=== PATIENT | female | born 1930 | race Caucasian/White ===

== ENCOUNTER 2016-06-17 14:15 | Inpatient (IN) | payer MEDICARE, OTHER ==
[~2016-06-17] VITALS: Ht 152.4 cm; Wt 54.4 kg
[~2016-06-17 14:15] MED LIST: NORVASC2.5 MG ORAL; PANTOPRAZOLE SO40 MG ORAL; PRAVASTATIN SOD20 M1 ORAL; PROPRANOLOL HCL10 MG ORAL; SIMVASTATIN5 MG ORAL
[2016-06-17 15:36] VITALS: BP 147/57
[2016-06-17 16:06] LABS: TROPONIN I < 0.30 ng/mL (<=0.30)
[2016-06-17 16:09] LABS: ALANINE AMINOTRANSFERASE 8 U/L (3-33); ALBUMIN/GLOBULIN RATIO 1.7 (1.0-2.7); ANION GAP 13 (5-15); ASPARTATE AMINO TRANSFERASE 11 U/L (5-40); CALCIUM 8.8 mg/dL (8.6-10.2); CARBON DIOXIDE 26 mEQ/L (20-30); CHLORIDE 96 mEQ/L (98-107); CREATININE 0.6 mg/dL (0.5-0.9); HEMOLYSIS 1; POTASSIUM 3.9 mEQ/L (3.4-4.9); SODIUM 135 mEQ/L (135-145); TOTAL PROTEIN 5.4 g/dL (6.6-8.7)
--- NOTE | 2016-06-17 16:11 | Diagnostic Imaging Report ---
Indications: Altered mental status Technique: Spiral acquisitions obtained through the brain. Angled axial and coronal 5 x 5 mm slices were reconstructed. Total dose length product 1351 mGycm. CTDI vol(s) 70 mGy Comparison: None Findings: There is age-related enlargement of ventricles and extra-axial CSF spaces. There is periventricular the white matter chronic ischemic change. There is old encephalomalacia in the left occipital lobe, consistent with prior infarct. No acute hemorrhage or edema. No mass effect or midline shift. There is a patent cavum septum loosened at normal anatomic variant. Visualized orbits and sinuses are unremarkable. The calvarium is intact Impression: Chronic and age-related changes as described. Old left occipital infarct. Negative for acute intracranial bleed or mass effect. The CT scanner at [facility] is accredited by the [employer] and the scans are performed using protocols designed to limit radiation exposure to as low as reasonably achievable to attain images of sufficient resolution adequate for diagnostic evaluation.
[2016-06-17 16:19] LABS: CKMB 1.6 ng/mL (< 3.8)
--- NOTE | 2016-06-17 16:48 | Diagnostic Imaging Report ---
Indication: Chest pain Technique: One view of the chest Comparison: none Findings: Lungs demonstrate mild interstitial prominence and central bronchial wall thickening, appearance suggestive of senescent changes. No definite focal infiltrates. Pleural spaces are clear. No definite congestion. Heart size is borderline enlarged. There is a left arm PICC. Impression: No definite acute process. Borderline cardiomegaly Other findings as noted
[2016-06-17 16:52] LABS: APPEARANCE,URINE CLEAR; KETONES,URINE NEGATIVE (NEGATIVE); LEUKOCYTE ESTERASE ,URINE 2+ (NEGATIVE); NITRITE,URINE NEGATIVE (NEGATIVE); PH,URINE 6.5 (4.5-8.0); PROTEIN,URINE NEGATIVE (NEGATIVE); UROBILINOGEN,URINE NORMAL MG/DL (0.0-1.0)
--- NOTE | 2016-06-17 17:03 | Emergency Room Report ---
History of Present Illness General Chief Complaint: Generalized Weakness Source: Family Member Present Illness HPI 86 YOF sent from PMD's office for "Weakness" and dizziness and nausea. On chemo for known lymphoma. Denies headache, difficulty walking, chest pain, SOB , abd pain, fever/chills, urinary complaints. Allergies: Coded Allergies: No Known Allergies (Unverified , 02/22/16) Patient History Past Medical History: DM, HTN Past Surgical History: none Pertinent Family History: none Social History: Denies: alcohol use, drug use, smoking Now: No Immunizations: UTD Reviewed Nursing Documentation: PMH: Agreed, PSxH: Agreed Nursing Documentation-PMH Hx Cardiac Problems: Yes - Mitral Valve Hx Hypertension: Yes Hx Diabetes: Yes Hx Cancer: Yes - Lymphoma Hx Gastrointestinal Problems: Yes Hx Neurological Problems: No Hx Cerebrovascular Accident: Yes Review of Systems All Other Systems: negative except mentioned in HPI Physical Exam Vital Signs Date Time Temp Pulse Resp B/P Pulse Ox O2 Delivery O2 Flow Rate FiO2 06/17/16 14:08 98.6 79 18 156/74 99 Room Air Sp02 EP Interpretation: reviewed, normal General Appearance: normal inspection, well appearing, no apparent distress, alert, GCS 15, non-toxic, cachetic, Chronically Ill Head: normocephalic, atraumatic Eyes: bilateral eye EOMI, bilateral eye PERRL ENT: normal ENT inspection, hearing grossly normal, normal voice Neck: normal inspection, full range of motion, supple, no bony tend Respiratory: normal inspection, lungs clear, normal breath sounds, no respiratory distress, no retraction, no wheezing Cardiovascular #1: regular rate, rhythm, no edema Gastrointestinal: normal inspection, normal bowel sounds, non tender, soft, no guarding, no hernia Genitourinary: no CVA tenderness Musculoskeletal: normal inspection, back normal, normal range of motion, Nereyda' s Sign negative Neurologic: alert, oriented x3, responsive, car hopper III-XII nml as tested, motor strength/tone normal Psychiatric: normal inspection, judgement/insight normal, mood/affect normal Skin: normal inspection, normal color, no rash Lymphatic: normal inspection Medical Decision Making Medicare Attestation I Ned Tanner MD hereby attest that the medical record entry for date of service, 02/18/16 accurately reflects signatures/notations that I made in my capacity as MD when I treated/diagnosed the above listed Medicare beneficiary. I attest that this information is true, accurate and complete to the best of my knowledge. I understand that any falsification, omission, or concealment of material fact may subject me to administrative, civil, or criminal liability. This patient warrants hospital admission for extreme of age and has a condition that cannot be treated as outpatient. Diagnostic Impression: Primary Impression: Episode of generalized weakness Additional Impression: Anemia Qualified Codes: D64.9 - Anemia, unspecified ER Course Labs: Elevated BNP 1100. Hb 8. Troponin 0. CXR: No acute process Dizziness, weakness - Afebrile. No obvious source of infection in UA or CXR - ECG is NSR, no ischemia. Some PVCs. Troponin 0. - CT head shows older CVA. No acute ICH, mass - Hb 8. Will transfuse 2U PRBC Endorsed to Dr Sánchez as admitting physician for Dr Germain at 547pm for med/surg bed. EKG Diagnostic Results Rate: normal, other - PVCs Rhythm: NSR ST Segments: no acute changes Rhythm Strip Diag. Results EP Interpretation: yes Rate: 75 Rhythm: NSR, no PVC's Chest X-Ray Diagnostic Results EP Interpretation: Yes Findings: no consolidation, no effusion, no pneumothorax, other - Cardiomegaly Number of Views: 1 Last Vital Signs Date Time Temp Pulse Resp B/P Pulse Ox O2 Delivery O2 Flow Rate FiO2 06/17/16 15:36 76 20 147/57 99 Room Air 06/17/16 14:08 98.6 Status: improved Disposition: ADMITTED INPATIENT Condition: Serious Referrals: [facility] (PCP) NED TANNER M.D. Jun 17, 2016 17:03
[2016-06-17 17:14] LABS: BACTERIA,URINE FEW /HPF; RBC,URINE 0-2 /HPF (0 - 2); SQUAMOUS EPITHELIAL CELL,UR FEW /LPF (NONE/OCC)
[2016-06-17 17:37] LABS: MEAN CORPUSCULAR HGB CONC 32.1 G/DL (32.0-36.0); MEAN CORPUSCULAR VOLUME 100 FL (80-99); MEAN PLATELET VOLUME 9.3 FL (6.5-10.1); PLATELET COUNT 56 K/UL (150-450); RED BLOOD COUNT 2.51 M/UL (4.20-5.40); RED CELL DISTRIBUTION WIDTH 15.2 % (11.6-14.8); WHITE BLOOD COUNT 10.5 K/UL (4.8-10.8)
[2016-06-17 17:38] VITALS: BP 150/61
[2016-06-17] MEDS ORDERED: UNOBMED (18:04)
[2016-06-17 18:40] LABS: BAND NEUTROPHILS % (MANUAL) 5 % (0-8)
[2016-06-17 18:41] LABS: ANISOCYTOSIS 1+; BASOPHILS % (MANUAL) 0 % (0-2); EOSINOPHILS % (MANUAL) 0 % (0-3); HYPOCHROMASIA 1+; LYMPHOCYTES % (MANUAL) 6 % (20-45); NEUTROPHILS % (MANUAL) 87 % (45-75); PLATELET ESTIMATE DECREASED; PLATELET MORPHOLOGY NORMAL; TOTAL CELLS COUNTED 100
[2016-06-17 19:00] VITALS: BP 139/68
[2016-06-17] MEDS ORDERED: Miralax 17gm pkt ORAL PRN (20:00)
[2016-06-17] MEDS ORDERED: Zolpidem 5mg tab ORAL PRN (20:00)
[2016-06-17] MEDS ORDERED: Morphine Sulfate 2mg/ml Inj IVP PRN (20:00)
[2016-06-17] MEDS ORDERED: Mylanta II UD 30ml ORAL PRN (20:00)
[2016-06-17] MEDS ORDERED: LORazepam Inj 2mg/ml 1ml IV PRN (20:00)
[2016-06-17] MEDS ORDERED: Norco 5mg/325mg tab ORAL PRN (20:15)
[2016-06-17] MEDS: NovoLOG Insulin Flexpen SUBQ SCH (20:42)
[2016-06-17] MEDS ORDERED: Propranolol 10mg tab ORAL SCH (22:00)
[2016-06-18 01:00] VITALS: BP 138/68
[2016-06-18 04:07] VITALS: BP 144/69
[2016-06-18] MEDS: NovoLOG Insulin Flexpen SUBQ SCH ×4 (06:31→20:56)
[2016-06-18 07:07] LABS: MEAN CORPUSCULAR HEMOGLOBIN 31.8 PG (27.0-31.0); MEAN CORPUSCULAR HGB CONC 32.3 G/DL (32.0-36.0); MEAN CORPUSCULAR VOLUME 98 FL (80-99); MEAN PLATELET VOLUME 9.4 FL (6.5-10.1); PLATELET COUNT 49 K/UL (150-450); RED BLOOD COUNT 2.56 M/UL (4.20-5.40); RED CELL DISTRIBUTION WIDTH 14.4 % (11.6-14.8); WHITE BLOOD COUNT 4.2 K/UL (4.8-10.8)
[2016-06-18 07:20] LABS: MAGNESIUM 1.9 mg/dL (1.7-2.5)
[2016-06-18 07:22] LABS: LACTATE DEHYDROGENASE 211 U/L (135-230)
[2016-06-18 07:23] LABS: HEMOLYSIS 3; IRON 141 ug/dL (37-145); TOTAL IRON BINDING CAPACITY 268 ug/dL (250-400)
[2016-06-18 07:25] LABS: TROPONIN I < 0.30 ng/mL (<=0.30)
[2016-06-18 07:28] LABS: INR 1.1 (0.9-1.1); PROTHROMBIN TIME 10.9 SEC (9.30-11.50)
[2016-06-18 07:30] LABS: ALANINE AMINOTRANSFERASE 7 U/L (3-33); ALBUMIN/GLOBULIN RATIO 1.7 (1.0-2.7); ANION GAP 15 (5-15); ASPARTATE AMINO TRANSFERASE 11 U/L (5-40); CALCIUM 8.6 mg/dL (8.6-10.2); CARBON DIOXIDE 26 mEQ/L (20-30); CHLORIDE 97 mEQ/L (98-107); CREATININE 0.6 mg/dL (0.5-0.9); HEMOLYSIS 5; POTASSIUM 3.9 mEQ/L (3.4-4.9); SODIUM 138 mEQ/L (135-145); TOTAL PROTEIN 5.4 g/dL (6.6-8.7)
[2016-06-18 08:00] VITALS: BP 131/65
[2016-06-18 09:14] LABS: ANISOCYTOSIS 1+; BAND NEUTROPHILS % (MANUAL) 6 % (0-8); BASOPHILS % (MANUAL) 0 % (0-2); EOSINOPHILS % (MANUAL) 2 % (0-3); HYPOCHROMASIA 1+; LYMPHOCYTES % (MANUAL) 9 % (20-45); NEUTROPHILS % (MANUAL) 81 % (45-75); PLATELET ESTIMATE DECREASED; PLATELET MORPHOLOGY NORMAL; TOTAL CELLS COUNTED 100
[2016-06-18 09:54] LABS: ERYTHROCYTE SEDIMENTATION RATE 66 MM/HR (0-42)
--- NOTE | 2016-06-18 10:22 | Diagnostic Imaging Report ---
APPROVED REPORT CPT Code: 71554 Vascular Symptoms Syncope CAROTID (BILATERAL) - Imaging reveals no significant plaque within the right and left extracranial carotid arteries. The Doppler spectral flow analysis is within normal limits throughout the extracranial carotid arteries bilaterally. VERTEBRAL- The vertebral arteries are within normal limits.
--- NOTE | 2016-06-18 10:22 | Diagnostic Imaging Report ---
APPROVED REPORT CPT Code: 64398 Present Symptoms Comments: R/O DVT BILATERAL: Imaging reveals a patent deep venous system bilaterally. There is no evidence of thrombus within the femoral, popliteal or tibial segments. The greater saphenous veins are also within normal limits. Doppler indicates normal spontaneous flow within these segments.
[2016-06-18] MEDS: Atenolol 25mg tab ORAL SCH ×2 (10:34→20:54)
[2016-06-18] MEDS: Sucralfate 1gm tab ORAL SCH ×2 (10:34→16:44)
[2016-06-18 10:39] LABS: PATH BLOOD SMEAR/OMC SENT TO PATHOLOGIST; RETICULOCYTE COUNT 0.4 % (0.0-2.0)
--- NOTE | 2016-06-18 14:58 | Consultation ---
History of Present Illness General Date patient seen: Jun 18, 2016 Chief Complaint: Generalized Weakness Referring physician: dr Harman Reason for Consultation: in-patient management Present Illness HPI 86 year old female with PMHx of Lymphoma, on chemo, DM, HTN, presented to ER with CC of increased weakness and fatigue. Pt was found to have profound anemia and admitted for further evaluation. Allergies: Coded Allergies: No Known Allergies (Unverified , 02/22/16) Medication History Scheduled Amlodipine Besylate (Norvasc), 2.5 MG ORAL DAILY, (Reported) Pantoprazole* (Pantoprazole*), 40 MG ORAL DAILY, (Reported) Pravastatin Sod* (Pravastatin Sod*), 20 MG ORAL BEDTIME, (Reported) Propranolol Hcl* (Inderal*), 10 MG ORAL DA, (Reported) Simvastatin (Zocor), 5 MG ORAL BEDTIME, (Reported) Miscellaneous Medications Unable to Obtain Medications (Unable To Obtain Meds), (Reported) Patient History Healthcare decision maker Resuscitation status Full Code Advanced Directive on File Past Medical/Surgical History Past Medical/Surgical History: (1) HTN (hypertension) (2) Diabetes (3) Lymphoma Review of Systems Constitutional: Reports: malaise, weakness Physical Exam Lines, tubes and drains: peripheral HEENT: normocephalic, atraumatic Neck: non-tender, normal alignment Respiratory/Chest: chest wall non-tender, lungs clear Cardiovascular/Chest: normal peripheral pulses, regular rhythm Abdomen: normal bowel sounds, non tender Genitourinary/Rectal: normal genital exam Extremities: normal range of motion Skin Exam: normal pigmentation Neurologic: clinical documentation developer II-XII grossly normal Last 24 Hour Vital Signs Date Time Temp Pulse Resp B/P Pulse Ox O2 Delivery O2 Flow Rate FiO2 06/18/16 13:33 135/67 06/18/16 12:00 81 98 96 06/18/16 10:34 65 135/68 06/18/16 08:00 98.8 87 18 131/65 98 Room Air 06/18/16 04:07 97.1 82 20 144/69 99 Room Air 06/18/16 01:00 79 68 93 06/18/16 01:00 97.7 79 20 138/68 100 Room Air 06/17/16 19:00 98.4 79 20 139/68 98 Room Air 4/4/17 18:53 98.6 78 17 150/61 100 Room Air 06/17/16 17:38 78 17 150/61 100 Room Air 06/17/16 15:36 76 20 147/57 99 Room Air Intake and Output 06/17/16 06/18/16 19:00 07:00 Intake Total 750 ml Balance 750 ml IV Total 750 ml # Voids 1 5 # Bowel Movements 3 Laboratory Tests Test 06/17/16 15:23 06/17/16 16:16 06/17/16 17:03 06/18/16 03:00 Sodium Level 135 mEQ/L (135-145) Potassium Level 3.9 mEQ/L (3.4-4.9) Chloride Level 96 mEQ/L (98-107) L Carbon Dioxide Level 26 mEQ/L (20-30) Anion Gap 13 (5-15) Blood Urea Nitrogen 12 mg/dL (7-23) Creatinine 0.6 mg/dL (0.5-0.9) Estimat Glomerular Filtration Rate mL/min (>60) Glucose Level 118 mg/dL (74-106) H Calcium Level 8.8 mg/dL (8.6-10.2) Total Bilirubin 0.6 mg/dL (0.0-1.2) Aspartate Amino Transf (AST/SGOT) 11 U/L (5-40) Alanine Aminotransferase (ALT/SGPT) 8 U/L (3-33) Alkaline Phosphatase 80 U/L (35-104) Total Creatine Kinase 18 U/L (26-140) L Creatine Kinase MB 1.6 ng/mL (< 3.8) Creatine Kinase MB Relative Index 8.8 Troponin I < 0.30 ng/mL (<=0.30) Pro-B-Type Natriuretic Peptide 1176 pg/mL (0-450) H Total Protein 5.4 g/dL (6.6-8.7) L Albumin 3.4 g/dL (3.5-5.2) L Globulin 2.0 g/dL Albumin/Globulin Ratio 1.7 (1.0-2.7) Urine Color Pale yellow Urine Appearance Clear Urine pH 6.5 (4.5-8.0) Urine Specific [place] 1.010 (1.005-1.035) Urine Protein Negative (NEGATIVE) Urine Glucose (UA) Negative (NEGATIVE) Urine Ketones Negative (NEGATIVE) Urine Occult Blood Negative (NEGATIVE) Urine Nitrite Negative (NEGATIVE) Urine Bilirubin Negative (NEGATIVE) Urine Urobilinogen Normal MG/DL (0.0-1.0) Urine Leukocyte Esterase 2+ (NEGATIVE) H Urine RBC 0-2 /HPF (0 - 2) Urine WBC 2-4 /HPF (0 - 2) Urine Squamous Epithelial Cells Few /LPF (NONE/OCC) Urine Bacteria Few /HPF (NONE) White Blood Count 10.5 K/UL (4.8-10.8) Red Blood Count 2.51 M/UL (4.20-5.40) L Hemoglobin 8.0 G/DL (12.0-16.0) L Hematocrit 25.0 % (37.0-47.0) L Mean Corpuscular Volume 100 FL (80-99) H Mean Corpuscular Hemoglobin 32.0 PG (27.0-31.0) H Mean Corpuscular Hemoglobin Concent 32.1 G/DL (32.0-36.0) Red Cell Distribution Width 15.2 % (11.6-14.8) H Platelet Count 56 K/UL (150-450) L Mean Platelet Volume 9.3 FL (6.5-10.1) Neutrophils (%) (Auto) % (45.0-75.0) Lymphocytes (%) (Auto) % (20.0-45.0) Monocytes (%) (Auto) % (1.0-10.0) Eosinophils (%) (Auto) % (0.0-3.0) Basophils (%) (Auto) % (0.0-2.0) Differential Total Cells Counted 100 Neutrophils % (Manual) 87 % (45-75) H Lymphocytes % (Manual) 6 % (20-45) L Monocytes % (Manual) 2 % (1-10) Eosinophils % (Manual) 0 % (0-3) Basophils % (Manual) 0 % (0-2) Band Neutrophils 5 % (0-8) Platelet Estimate Decreased L Platelet Morphology Normal Hypochromasia 1+ Anisocytosis 1+ Stool Occult Blood Negative (NEGATIVE) Test 06/18/16 06:15 White Blood Count 4.2 K/UL (4.8-10.8) #L Red Blood Count 2.56 M/UL (4.20-5.40) L Hemoglobin 8.1 G/DL (12.0-16.0) L Hematocrit 25.1 % (37.0-47.0) L Mean Corpuscular Volume 98 FL (80-99) Mean Corpuscular Hemoglobin 31.8 PG (27.0-31.0) H Mean Corpuscular Hemoglobin Concent 32.3 G/DL (32.0-36.0) Red Cell Distribution Width 14.4 % (11.6-14.8) Platelet Count 49 K/UL (150-450) L Mean Platelet Volume 9.4 FL (6.5-10.1) Neutrophils (%) (Auto) % (45.0-75.0) Lymphocytes (%) (Auto) % (20.0-45.0) Monocytes (%) (Auto) % (1.0-10.0) Eosinophils (%) (Auto) % (0.0-3.0) Basophils (%) (Auto) % (0.0-2.0) Differential Total Cells Counted 100 Neutrophils % (Manual) 81 % (45-75) H Lymphocytes % (Manual) 9 % (20-45) L Monocytes % (Manual) 2 % (1-10) Eosinophils % (Manual) 2 % (0-3) Basophils % (Manual) 0 % (0-2) Band Neutrophils 6 % (0-8) Platelet Estimate Decreased L Platelet Morphology Normal Hypochromasia 1+ Anisocytosis 1+ Erythrocyte Sedimentation Rate 66 MM/HR (0-42) H Reticulocyte Count 0.4 % (0.0-2.0) Prothrombin Time 10.9 SEC (9.30-11.50) Prothromb Time International Ratio 1.1 (0.9-1.1) Activated Partial Thromboplast Time 28 SEC (23-33) Sodium Level 138 mEQ/L (135-145) Potassium Level 3.9 mEQ/L (3.4-4.9) Chloride Level 97 mEQ/L (98-107) L Carbon Dioxide Level 26 mEQ/L (20-30) Anion Gap 15 (5-15) Blood Urea Nitrogen 9 mg/dL (7-23) Creatinine 0.6 mg/dL (0.5-0.9) Estimat Glomerular Filtration Rate mL/min (>60) Glucose Level 125 mg/dL (74-106) H Calcium Level 8.6 mg/dL (8.6-10.2) Phosphorus Level 4.0 mg/dL (2.5-4.8) Magnesium Level 1.9 mg/dL (1.7-2.5) Iron Level 141 ug/dL (37-145) Total Iron Binding Capacity 268 ug/dL (250-400) Percent Iron Saturation 53 % (15-50) H Unsaturated Iron Binding 127 ug/dL (112-346) Total Bilirubin 0.7 mg/dL (0.0-1.2) Aspartate Amino Transf (AST/SGOT) 11 U/L (5-40) Alanine Aminotransferase (ALT/SGPT) 7 U/L (3-33) Alkaline Phosphatase 77 U/L (35-104) Lactate Dehydrogenase 211 U/L (135-230) Troponin I < 0.30 ng/mL (<=0.30) Total Protein 5.4 g/dL (6.6-8.7) L Albumin 3.4 g/dL (3.5-5.2) L Globulin 2.0 g/dL Albumin/Globulin Ratio 1.7 (1.0-2.7) Carcinoembryonic Antigen 1.6 ng/mL Vitamin B12 Level > 2000 pg/mL (211-946) H Folate Pending Thyroid Stimulating Hormone (TSH) 2.260 uIU/mL (0.300-4.500) Height (Feet): 5 Height (Inches): 0.00 Weight (Pounds): 120 Medications Current Medications Medications (Trade) Dose Ordered Sig/Sharita Route PRN Reason Start Time Stop Time Status Last Admin Dose Admin Acetaminophen (Tylenol) 650 mg Q4H PRN ORAL fever 06/17/16 20:00 07/17/16 19:59 Acetaminophen/ Hydrocodone Bitart ([place] 5/325) 1 tab Q6H PRN ORAL Moderate Pain (Pain Scale 4-6) 06/17/16 20:15 06/24/16 20:14 Al Hydroxide/Mg Hydroxide (Mylanta II) 30 ml Q6H PRN ORAL dyspepsia 06/17/16 20:00 07/17/16 19:59 Atenolol (Tenormin) 25 mg Q12HR ORAL 06/18/16 10:00 07/18/16 09:59 06/18/16 10:34 Dextrose STAT PRN IV Hypoglycemia 06/17/16 20:00 07/17/16 19:59 Donepezil HCl (Aricept) 5 mg QHS ORAL 06/18/16 21:00 07/18/16 20:59 Glipizide (GlipiZIDE XL) 2.5 mg BIAC ORAL 06/18/16 16:30 07/18/16 16:29 Insulin Aspart (NovoLOG) BEFORE MEALS AND HS SUBQ 06/17/16 21:00 07/17/16 20:59 06/18/16 12:24 Irbesartan (Avapro) 75 mg DAILY ORAL 06/18/16 12:00 07/18/16 11:59 06/18/16 13:33 Lorazepam (Ativan 2mg/ml 1ml) 0.5 mg Q4H PRN IV For Anxiety 06/17/16 20:00 06/24/16 19:59 Morphine Sulfate (Morphine Sulfate) 1 mg Q4H PRN IVP For Pain 4-06/17/16 20:00 06/24/16 19:59 Ondansetron HCl (Zofran) 4 mg Q6H PRN IVP Nausea & Vomiting 06/17/16 20:00 07/17/16 19:59 06/18/16 13:32 Pantoprazole (Protonix) 40 mg ACBREAKFAST ORAL 06/18/16 10:00 07/18/16 09:59 06/18/16 10:33 Polyethylene Glycol (Miralax) 17 gm HSPRN PRN ORAL Constipation FIRST LINE AGENT 06/17/16 20:00 07/17/16 19:59 Sodium Chloride (Sodium Chloride 1000ml bag) 1,000 ml @ 75 mls/hr [id number] IV 06/17/16 20:30 07/17/16 20:29 06/18/16 10:33 Sucralfate (Carafate) 1 gm TIAC ORAL 06/18/16 11:30 07/18/16 11:29 06/18/16 10:34 Zolpidem Tartrate (Ambien) 5 mg HSPRN PRN ORAL Insomnia 06/17/16 20:00 07/17/16 19:59 Assessment/Plan Problem List: (1) Symptomatic anemia ICD Codes: D64.9 - Anemia, unspecified SNOMED: 661921934 (2) Episode of generalized weakness ICD Codes: R53.1 - Weakness SNOMED: 36564600 (3) Diabetes ICD Codes: E11.9 - Type 2 diabetes mellitus without complications SNOMED: 12255325 (4) Lymphoma ICD Codes: C85.90 - Non-Hodgkin lymphoma, unspecified, unspecified site SNOMED: 456388995 (5) HTN (hypertension) ICD Codes: I10 - Essential (primary) hypertension SNOMED: 61153033 Assessment/Plan prbc prn anemia w/u sliding scale dvt prophylaxis check h/h in EMPERATRIZ Santacruz Jun 18, 2016 14:58
[2016-06-18 16:00] VITALS: BP 144/68
[2016-06-18 19:00] VITALS: BP 149/70
--- NOTE | 2016-06-18 19:36 | History & Physical ---
History and Physical History & Physicial Dictated for Int Med - Dr Sánchez no [id number]. LINN PARR Jun 18, 2016 19:36
[2016-06-18] MEDS: Donepezil 5mg Tab ORAL SCH (20:54)
--- NOTE | 2016-06-18 23:09 | Cardiology Report ---
APPROVED REPORT EKG Measurement Heart [id number] Sinus rhythm with occasional premature ventricular complexes Otherwise normal ECG
--- NOTE | 2016-06-18 23:37 | History and Physical Report ---
DATE OF ADMISSION: 06/17/[address] Sánchez. CHIEF COMPLAINT: The patient is an 86-year-old, Cam[place]onian speaking female presents with chief complaint of generalized weakness and fatigue. HISTORY OF PRESENT ILLNESS: The patient has a history of lymphoma and is currently on chemotherapy. Apparently, the patient began to experience extreme generalized weakness and fatigue over the past few days. The patient was evaluated in [place] emergency room. The patient was found to have severe anemia. The patient is admitted for severe anemia and generalized weakness. PAST MEDICAL HISTORY: Significant for 1. Lymphoma, currently in chemotherapy. 2. Diabetes. 3. Hypertension. PAST SURGICAL HISTORY: Unknown. MEDICATIONS: Current medications 1. Amlodipine 2.5 mg one tablet p.o. daily. 2. Protonix 40 mg one tablet p.o. daily. 3. Pravastatin 20 mg one tablet p.o. at bedtime. 4. Propranolol 10 mg one tablet p.o. daily. 5. Simvastatin 5 mg one tablet p.o. at bedtime. ALLERGIES: No known drug allergies. SOCIAL HISTORY: The patient is and denies tobacco or alcohol use. REVIEW OF SYSTEMS: Unable to assess secondary to patient's mental status. PHYSICAL EXAMINATION: GENERAL: The patient is frail appearing elderly white female, who is in no apparent distress. VITAL SIGNS: Temperature is 97.1 degrees, respirations 20, pulse 82, and blood pressure 144/69. HEENT: Eyes, pupils are equal and responsive to light and accommodation. Extraocular movements are intact. NECK: Supple without lymphadenopathy. CHEST: Lungs are clear to auscultation bilaterally without wheezes or rales. CARDIOVASCULAR: Regular rhythm and rate. S1 and S2 normal with murmurs, rubs, or gallops. ABDOMEN: Soft, nontender, and nondistended. Positive bowel sounds. No evidence of hepatosplenomegaly. Currently, no rebound or guarding. EXTREMITIES: Negative for clubbing, cyanosis, or edema. RECTAL: Refused. GENITAL: Refused. NEUROLOGIC: Cranial nerves II through XII are grossly intact without focal deficits. Motor strength is 5/5 bilaterally. Deep tendon reflexes are 2+ plantar. LABORATORY AND DIAGNOSTIC DATA: WBC 10.5, hemoglobin 8.3, hematocrit 25.0 and platelets 56,000. Sodium 138, potassium 3.9, chloride 97, CO2 is 26, BUN 9, creatinine 0.6, and glucose 125. Serum iron normal at 141 and percent saturation 53. ASSESSMENT: This is a 86-year-old, [place] female 1. Severe anemia. 2. Generalized weakness. 3. Fatigue. 4. Lymphoma. 5. Diabetes type 2. 6. Hypertension. 7. Hypercholesterolemia. TREATMENT: 1. Severe anemia. The patient at bedside had been crossed for two units of packed RBCs. These are being held currently. Anemia may be secondary to chronic disease secondary to lymphoma as above. 2. Generalized weakness/fatigue. It may be secondary to chemotherapy and lymphoma. This may also be secondary to severe anemia. 3. Diabetes type 2. The patient is currently off antihyperglycemic medication. 4. Hypertension. Continue Norvasc and propranolol as above. 5. Hypercholesterolemia. Continue pravastatin as above. Adan Martin M.D. DR: MARIA DOLORES JOB#: [id number] CC:
[2016-06-19] VITALS: BP 144/81
[2016-06-19 04:00] VITALS: BP 139/56
[2016-06-19] MEDS: Sucralfate 1gm tab ORAL SCH ×3 (06:17→16:30)
[2016-06-19] MEDS: NovoLOG Insulin Flexpen SUBQ SCH ×4 (06:18→21:43)
[2016-06-19 06:50] LABS: ANION GAP 12 (5-15); CALCIUM 8.5 mg/dL (8.6-10.2); CARBON DIOXIDE 26 mEQ/L (20-30); CHLORIDE 94 mEQ/L (98-107); CREATININE 0.6 mg/dL (0.5-0.9); HEMOLYSIS 2; POTASSIUM 3.6 mEQ/L (3.4-4.9); SODIUM 132 mEQ/L (135-145)
[2016-06-19 08:00] VITALS: BP 136/73
[2016-06-19 08:08] LABS: MEAN CORPUSCULAR HEMOGLOBIN 31.1 PG (27.0-31.0); MEAN CORPUSCULAR HGB CONC 31.9 G/DL (32.0-36.0); MEAN CORPUSCULAR VOLUME 97 FL (80-99); MEAN PLATELET VOLUME 10.2 FL (6.5-10.1); PLATELET COUNT 44 K/UL (150-450); RED BLOOD COUNT 2.51 M/UL (4.20-5.40); RED CELL DISTRIBUTION WIDTH 14.3 % (11.6-14.8)
[2016-06-19 08:12] LABS: WHITE BLOOD COUNT 0.5 K/UL (4.8-10.8)
[2016-06-19] MEDS: Atenolol 25mg tab ORAL SCH ×2 (08:48→21:42)
[2016-06-19 10:06] LABS: EOSINOPHILS % (MANUAL) 2 % (0-3); LYMPHOCYTES % (MANUAL) 84 % (20-45); NEUTROPHILS % (MANUAL) 4 % (45-75); TOTAL CELLS COUNTED 100
[2016-06-19 10:07] LABS: ANISOCYTOSIS 1+; BAND NEUTROPHILS % (MANUAL) 0 % (0-8); BASOPHILS % (MANUAL) 0 % (0-2); HYPOCHROMASIA 1+; MACROCYTES 1+; PLATELET ESTIMATE DECREASED; PLATELET MORPHOLOGY NORMAL
--- NOTE | 2016-06-19 11:03 | Cardiology Report ---
APPROVED REPORT EXAM: Two-dimensional and M-mode echocardiogram with Doppler and color Doppler. INDICATION Dizziness and Vertigo M-Mode DIMENSIONS IVSd0.6 (0.7-1.1cm)Left Atrium (MM)3.9 (1.6-4.0cm) LVDd4.0 (3.5-5.6cm)Aortic Root1.9 (2.0-3.7cm) PWd1.0 (0.7-1.1cm)Aortic Cusp Exc.0.7 (1.5-2.0cm) LVDs2.3 (2.5-4.0cm) PWs1.2 cm Normal left ventricular chamber size, systolic function and wall motion. Left ventricular ejection fraction estimated to be 60-65%. Mild left ventricular hypertrophy. No evidence of pericardial fat or effusion. Right cardiac chamber sizes are within normal limits. Moderate left atrial enlargement by 2D. Aortic valve calcification with decreased cusp excursion c/w aortic stenosis. Moderatly thickened mitral valve leaflets with normal excursion. Mitral annulus and aortic root calcification. Pulmonic valve not well visualized. Normal tricuspid valve structure. IVC is normal in size with physiologic collapse. A color flow and spectral Doppler study was performed and revealed: No aortic regurgitation. Peak aortic valve gradient of 46mmHg and a mean of 23 mmHg. Aortic valve area 1.2cm2 calculated by continuity equation. Severe mitral regurgitation. Left ventricular diastolic dysfunction grade 3. Moderate tricuspid regurgitation. Tricuspid systolic velocities suggests peak right ventricular systolic pressure of 46 mmHg Consistent with moderate pulmonary hypertension. Pulmonic regurgitation present.
[2016-06-19] MEDS ORDERED: TBO-Filgrastim 300 mcg/0.5ml SQ SCH (11:30)
[2016-06-19 12:00] VITALS: BP 134/67
[2016-06-19] MEDS: TBO-Filgrastim 300 mcg/0.5ml SQ NR (13:16)
[2016-06-19 16:00] VITALS: BP 145/73
--- NOTE | 2016-06-19 17:30 | Internal Med Progress Note ---
Subjective Date of Service: Jun 19, 2016 Physician Name Adan Parr Attending Physician Donald Sánchez MD Current Medications Medications (Trade) Dose Ordered Sig/Sharita Route PRN Reason Start Time Stop Time Status Last Admin Dose Admin Acetaminophen (Tylenol) 650 mg Q4H PRN ORAL fever 06/17/16 20:00 07/17/16 19:59 Acetaminophen/ Hydrocodone Bitart ([place] 5/325) 1 tab Q6H PRN ORAL Moderate Pain (Pain Scale 4-6) 06/17/16 20:15 06/24/16 20:14 Al Hydroxide/Mg Hydroxide (Mylanta II) 30 ml Q6H PRN ORAL dyspepsia 06/17/16 20:00 07/17/16 19:59 Atenolol (Tenormin) 25 mg Q12HR ORAL 06/18/16 10:00 07/18/16 09:59 06/19/16 08:48 Dextrose (Dextrose 50%) STAT PRN IV Hypoglycemia 06/17/16 20:00 07/17/16 19:59 Donepezil HCl (Aricept) 5 mg QHS ORAL 06/18/16 21:00 07/18/16 20:59 06/18/16 20:54 Glipizide (GlipiZIDE XL) 2.5 mg BIAC ORAL 06/18/16 16:30 07/18/16 16:29 06/19/16 06:17 Insulin Aspart (NovoLOG) BEFORE MEALS AND HS SUBQ 06/17/16 21:00 07/17/16 20:59 06/18/16 12:24 Irbesartan (Avapro) 75 mg DAILY ORAL 06/18/16 12:00 07/18/16 11:59 06/19/16 08:48 Lorazepam (Ativan 2mg/ml 1ml) 0.5 mg Q4H PRN IV For Anxiety 06/17/16 20:00 06/24/16 19:59 Morphine Sulfate (Morphine Sulfate) 1 mg Q4H PRN IVP For Pain 4-10 06/17/16 20:00 06/24/16 19:59 Ondansetron HCl (Zofran) 4 mg Q6H PRN IVP Nausea & Vomiting 06/17/16 20:00 07/17/16 19:59 06/18/16 13:32 Pantoprazole (Protonix) 40 mg ACBREAKFAST ORAL 06/18/16 10:00 07/18/16 09:59 06/19/16 06:17 Polyethylene Glycol (Miralax) 17 gm HSPRN PRN ORAL Constipation FIRST LINE AGENT 06/17/16 20:00 07/17/16 19:59 Sucralfate (Carafate) 1 gm TIAC ORAL 06/18/16 11:30 07/18/16 11:29 06/19/16 11:45 Tbo-Filgrastim (Granix) 300 mcg BIOTEC SQ 06/19/16 13:00 07/19/16 12:59 06/19/16 13:16 Zolpidem Tartrate (Ambien) 5 mg HSPRN PRN ORAL Insomnia 06/17/16 20:00 07/17/16 19:59 Allergies: Coded Allergies: No Known Allergies (Unverified , 02/22/16) ROS Limited/Unobtainable: Yes Subjective 86 YO F with lymphoma admitted with generalized weakness and fatigue. Now anemia and neutropenia. Cover for Int Med-Dr Sánchez. Objective Last Vital Signs Date Time Temp Pulse Resp B/P Pulse Ox O2 Delivery O2 Flow Rate FiO2 06/19/16 16:00 97.9 76 20 145/73 98 Room Air General Appearance: cachetic, lethargic, thin EENT: PERRL/EOMI, normal ENT inspection Neck: non-tender, normal alignment, supple Cardiovascular: normal peripheral pulses, normal rate, regular rhythm, no gallop/murmur, no JVD Respiratory/Chest: chest wall non-tender, lungs clear, normal breath sounds, no respiratory distress, no accessory muscle use Abdomen: normal bowel sounds, non tender, soft, no organomegaly, no mass Extremities: normal range of motion, non-tender 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, no motor/sensory deficits Skin: normal pigmentation, warm/dry Laboratory Tests Test 06/19/16 05:50 06/19/16 07:56 Sodium Level 132 mEQ/L (135-145) L Potassium Level 3.6 mEQ/L (3.4-4.9) Chloride Level 94 mEQ/L (98-107) L Carbon Dioxide Level 26 mEQ/L (20-30) Anion Gap 12 (5-15) Blood Urea Nitrogen 7 mg/dL (7-23) Creatinine 0.6 mg/dL (0.5-0.9) Estimat Glomerular Filtration Rate mL/min (>60) Glucose Level 96 mg/dL (74-106) Calcium Level 8.5 mg/dL (8.6-10.2) L White Blood Count 0.5 K/UL (4.8-10.8) #*L Red Blood Count 2.51 M/UL (4.20-5.40) L Hemoglobin 7.8 G/DL (12.0-16.0) L Hematocrit 24.4 % (37.0-47.0) L Mean Corpuscular Volume 97 FL (80-99) Mean Corpuscular Hemoglobin 31.1 PG (27.0-31.0) H Mean Corpuscular Hemoglobin Concent 31.9 G/DL (32.0-36.0) L Red Cell Distribution Width 14.3 % (11.6-14.8) Platelet Count 44 K/UL (150-450) L Mean Platelet Volume 10.2 FL (6.5-10.1) H Neutrophils (%) (Auto) % (45.0-75.0) Lymphocytes (%) (Auto) % (20.0-45.0) Monocytes (%) (Auto) % (1.0-10.0) Eosinophils (%) (Auto) % (0.0-3.0) Basophils (%) (Auto) % (0.0-2.0) Differential Total Cells Counted 100 Neutrophils % (Manual) 4 % (45-75) L Lymphocytes % (Manual) 84 % (20-45) H Monocytes % (Manual) 10 % (1-10) Eosinophils % (Manual) 2 % (0-3) Basophils % (Manual) 0 % (0-2) Band Neutrophils 0 % (0-8) Platelet Estimate Decreased L Platelet Morphology Normal Hypochromasia 1+ Anisocytosis 1+ Macrocytosis 1+ Microbiology Date/Time Source Procedure Growth Status 06/17/16 20:30 Blood Blood Culture - Preliminary NO GROWTH AFTER 24 HOURS Resulted 06/17/16 20:30 Blood Blood Culture - Preliminary NO GROWTH AFTER 24 HOURS Resulted 06/18/16 17:30 Stool Clostridium difficile Toxin Assay - Final Complete Intake and Output 06/18/16 06/19/16 19:00 07:00 Intake Total 985 ml 300 ml Balance 985 ml 300 ml Intake Oral 460 ml 300 ml IV Total 525 ml # Voids 4 5 # Bowel Movements 6 10 Assessment/Plan Problem List: (1) Neutropenia Assessment & Plan: ?due to chemotherapy? Await ID consult. (2) Severe anemia (3) Generalized weakness (4) Fatigue (5) HTN (hypertension) Assessment & Plan: Cont avapro and atenolol (6) Diabetes (7) Lymphoma Assessment & Plan: Await onc consult. (8) C. difficile diarrhea Assessment & Plan: Await ID consult. Start flagyl. Status: not improved ADAN PARR Jun 19, 2016 17:30
[2016-06-19] MEDS: metroNIDAZOLE 500mg tab ORAL SCH ×2 (18:32→22:10)
[2016-06-19 19:00] VITALS: BP 141/66
--- NOTE | 2016-06-19 20:05 | Infectious Diseases Prog Note ---
Assessment/Plan Assessment/Plan Full consult dictated: A) 1) c.diff. colitis, diarrhea, possible sepsis, lgt, sirs criteria met, bc- negative 2) lweakness, fatigue, anemai, thrombocytopenia, neutropenia 3) lymphoma, dm, htn, chemo, hypercholesteremia 4) allergies - negative, fh-nc, sh-negative, mar noted, notes and records reviewed 5) d/w RN P) 1) flagyl po 2) check final cultures, check labs 3) continue treatment per primary and consultants 4) orders entered and noted 5) thank you Subjective Allergies: Coded Allergies: No Known Allergies (Unverified , 02/22/16) Objective Vital Signs Last 24 Hour Vital Signs Date Time Temp Pulse Resp B/P Pulse Ox O2 Delivery O2 Flow Rate FiO2 06/19/16 16:00 97.9 76 20 145/73 98 Room Air 06/19/16 12:00 99.0 79 18 134/67 98 Room Air 06/19/16 08:48 85 139/56 06/19/16 08:48 139/56 06/19/16 08:00 98.4 76 18 136/73 98 Room Air 06/19/16 04:00 98.9 85 18 139/56 97 Room Air 06/19/16 00:50 96 105 114 06/19/16 00:00 99.5 96 18 144/81 97 Room Air 06/18/16 20:54 94 149/70 Height (Feet): 5 Height (Inches): 0.00 Weight (Pounds): 120 Microbiology Date/Time Source Procedure Growth Status 06/17/16 20:30 Blood Blood Culture - Preliminary NO GROWTH AFTER 24 HOURS Resulted 06/17/16 20:30 Blood Blood Culture - Preliminary NO GROWTH AFTER 24 HOURS Resulted 06/18/16 17:30 Stool Clostridium difficile Toxin Assay - Final Complete Laboratory Tests Test 06/19/16 05:50 06/19/16 07:56 Sodium Level 132 mEQ/L (135-145) L Potassium Level 3.6 mEQ/L (3.4-4.9) Chloride Level 94 mEQ/L (98-107) L Carbon Dioxide Level 26 mEQ/L (20-30) Anion Gap 12 (5-15) Blood Urea Nitrogen 7 mg/dL (7-23) Creatinine 0.6 mg/dL (0.5-0.9) Estimat Glomerular Filtration Rate mL/min (>60) Glucose Level 96 mg/dL (74-106) Calcium Level 8.5 mg/dL (8.6-10.2) L White Blood Count 0.5 K/UL (4.8-10.8) #*L Red Blood Count 2.51 M/UL (4.20-5.40) L Hemoglobin 7.8 G/DL (12.0-16.0) L Hematocrit 24.4 % (37.0-47.0) L Mean Corpuscular Volume 97 FL (80-99) Mean Corpuscular Hemoglobin 31.1 PG (27.0-31.0) H Mean Corpuscular Hemoglobin Concent 31.9 G/DL (32.0-36.0) L Red Cell Distribution Width 14.3 % (11.6-14.8) Platelet Count 44 K/UL (150-450) L Mean Platelet Volume 10.2 FL (6.5-10.1) H Neutrophils (%) (Auto) % (45.0-75.0) Lymphocytes (%) (Auto) % (20.0-45.0) Monocytes (%) (Auto) % (1.0-10.0) Eosinophils (%) (Auto) % (0.0-3.0) Basophils (%) (Auto) % (0.0-2.0) Differential Total Cells Counted 100 Neutrophils % (Manual) 4 % (45-75) L Lymphocytes % (Manual) 84 % (20-45) H Monocytes % (Manual) 10 % (1-10) Eosinophils % (Manual) 2 % (0-3) Basophils % (Manual) 0 % (0-2) Band Neutrophils 0 % (0-8) Platelet Estimate Decreased L Platelet Morphology Normal Hypochromasia 1+ Anisocytosis 1+ Macrocytosis 1+ Current Medications Medications (Trade) Dose Ordered Sig/Sharita Route PRN Reason Start Time Stop Time Status Last Admin Dose Admin Acetaminophen (Tylenol) 650 mg Q4H PRN ORAL fever 06/17/16 20:00 07/17/16 19:59 Acetaminophen/ Hydrocodone Bitart ([place] 5/325) 1 tab Q6H PRN ORAL Moderate Pain (Pain Scale 4-6) 06/17/16 20:15 4/11/17 20:14 Al Hydroxide/Mg Hydroxide (Mylanta II) 30 ml Q6H PRN ORAL dyspepsia 06/17/16 20:00 07/17/16 19:59 Atenolol (Tenormin) 25 mg Q12HR ORAL 06/18/16 10:00 07/18/16 09:59 06/19/16 08:48 Dextrose (Dextrose 50%) STAT PRN IV Hypoglycemia 06/17/16 20:00 07/17/16 19:59 Donepezil HCl (Aricept) 5 mg QHS ORAL 06/18/16 21:00 07/18/16 20:59 06/18/16 20:54 Glipizide (GlipiZIDE XL) 2.5 mg BIAC ORAL 06/18/16 16:30 07/18/16 16:29 06/19/16 06:17 Insulin Aspart (NovoLOG) BEFORE MEALS AND HS SUBQ 06/17/16 21:00 07/17/16 20:59 06/18/16 12:24 Irbesartan (Avapro) 75 mg DAILY ORAL 06/18/16 12:00 07/18/16 11:59 06/19/16 08:48 Lorazepam (Ativan 2mg/ml 1ml) 0.5 mg Q4H PRN IV For Anxiety 06/17/16 20:00 06/24/16 19:59 Metronidazole (Flagyl) 500 mg Q8HR ORAL 06/19/16 18:00 06/26/16 17:59 06/19/16 18:32 Morphine Sulfate (Morphine Sulfate) 1 mg Q4H PRN IVP For Pain 4-06/17/16 20:00 06/24/16 19:59 Ondansetron HCl (Zofran) 4 mg Q6H PRN IVP Nausea & Vomiting 06/17/16 20:00 07/17/16 19:59 06/18/16 13:32 Pantoprazole (Protonix) 40 mg ACBREAKFAST ORAL 06/18/16 10:00 07/18/16 09:59 06/19/16 06:17 Polyethylene Glycol (Miralax) 17 gm HSPRN PRN ORAL Constipation FIRST LINE AGENT 06/17/16 20:00 07/17/16 19:59 Sucralfate (Carafate) 1 gm TIAC ORAL 06/18/16 11:30 07/18/16 11:29 06/19/16 11:45 Tbo-Filgrastim (Granix) 300 mcg BIOTEC SQ 06/19/16 13:00 07/19/16 12:59 06/19/16 13:16 Zolpidem Tartrate (Ambien) 5 mg HSPRN PRN ORAL Insomnia 06/17/16 20:00 07/17/16 19:59 LORE JACOBSEN Jun 19, 2016 20:05
[2016-06-19] MEDS: Donepezil 5mg Tab ORAL SCH (21:42)
--- NOTE | 2016-06-19 23:29 | Pulmonology Progress Note ---
Assessment/Plan Problems: (1) Symptomatic anemia (2) Episode of generalized weakness (3) Diabetes (4) Lymphoma (5) HTN (hypertension) Subjective Allergies: Coded Allergies: No Known Allergies (Unverified , 02/22/16) Objective Last 24 Hour Vital Signs Date Time Temp Pulse Resp B/P Pulse Ox O2 Delivery O2 Flow Rate FiO2 06/19/16 21:42 74 141/66 06/19/16 19:00 98.0 74 18 141/66 97 Room Air 06/19/16 16:00 97.9 76 20 145/73 98 Room Air 06/19/16 12:00 99.0 79 18 134/67 98 Room Air 06/19/16 08:48 85 139/56 06/19/16 08:48 139/56 06/19/16 08:00 98.4 76 18 136/73 98 Room Air 06/19/16 04:00 98.9 85 18 139/56 97 Room Air 06/19/16 00:50 96 105 114 06/19/16 00:00 99.5 96 18 144/81 97 Room Air Intake and Output 06/18/16 06/19/16 19:00 07:00 Intake Total 985 ml 300 ml Balance 985 ml 300 ml Intake Oral 460 ml 300 ml IV Total 525 ml # Voids 4 5 # Bowel Movements 6 10 Microbiology Date/Time Source Procedure Growth Status 06/17/16 20:30 Blood Blood Culture - Preliminary NO GROWTH AFTER 24 HOURS Resulted 06/17/16 20:30 Blood Blood Culture - Preliminary NO GROWTH AFTER 24 HOURS Resulted 06/18/16 17:30 Stool Clostridium difficile Toxin Assay - Final Complete Laboratory Tests 06/19/16 05:50: Sodium Level 132L, Potassium Level 3.6, Chloride Level 94L, Carbon Dioxide Level 26, Anion Gap 12, Blood Urea Nitrogen 7, Creatinine 0.6, Estimat Glomerular Filtration Rate , Glucose Level 96, Calcium Level 8.5L 06/19/16 07:56: White Blood Count 0.5#*L, Red Blood Count 2.51L, Hemoglobin 7.8L, Hematocrit 24.4L, Mean Corpuscular Volume 97, Mean Corpuscular Hemoglobin 31.1H, Mean Corpuscular Hemoglobin Concent 31.9L, Red Cell Distribution Width 14.3, Platelet Count 44L, Mean Platelet Volume 10.2H, Neutrophils (%) (Auto) , Lymphocytes (%) (Auto) , Monocytes (%) (Auto) , Eosinophils (%) (Auto) , Basophils (%) (Auto) , Differential Total Cells Counted 100, Neutrophils % ( Manual) 4L, Lymphocytes % (Manual) 84H, Monocytes % (Manual) 10, Eosinophils % ( Manual) 2, Basophils % (Manual) 0, Band Neutrophils 0, Platelet Estimate DecreasedL, Platelet Morphology Normal, Hypochromasia 1+, Anisocytosis 1+, Macrocytosis 1+ Current Medications Medications (Trade) Dose Ordered Sig/Sharita Route PRN Reason Start Time Stop Time Status Last Admin Dose Admin Acetaminophen (Tylenol) 650 mg Q4H PRN ORAL fever 06/17/16 20:00 07/17/16 19:59 Acetaminophen/ Hydrocodone Bitart ([place] 5/325) 1 tab Q6H PRN ORAL Moderate Pain (Pain Scale 4-6) 06/17/16 20:15 06/24/16 20:14 Al Hydroxide/Mg Hydroxide (Mylanta II) 30 ml Q6H PRN ORAL dyspepsia 06/17/16 20:00 07/17/16 19:59 Atenolol (Tenormin) 25 mg Q12HR ORAL 06/18/16 10:00 07/18/16 09:59 06/19/16 21:42 Dextrose (Dextrose 50%) STAT PRN IV Hypoglycemia 06/17/16 20:00 07/17/16 19:59 Donepezil HCl (Aricept) 5 mg QHS ORAL 06/18/16 21:00 07/18/16 20:59 06/19/16 21:42 Glipizide (GlipiZIDE XL) 2.5 mg BIAC ORAL 06/18/16 16:30 07/18/16 16:29 06/19/16 06:17 Insulin Aspart (NovoLOG) BEFORE MEALS AND HS SUBQ 06/17/16 21:00 07/17/16 20:59 06/19/16 21:43 Irbesartan (Avapro) 75 mg DAILY ORAL 06/18/16 12:00 07/18/16 11:59 06/19/16 08:48 Lorazepam (Ativan 2mg/ml 1ml) 0.5 mg Q4H PRN IV For Anxiety 06/17/16 20:00 06/24/16 19:59 Metronidazole (Flagyl) 500 mg Q8HR ORAL 06/19/16 18:00 06/26/16 17:59 06/19/16 22:10 Morphine Sulfate (Morphine Sulfate) 1 mg Q4H PRN IVP For Pain 4-06/17/16 20:00 06/24/16 19:59 Ondansetron HCl (Zofran) 4 mg Q6H PRN IVP Nausea & Vomiting 06/17/16 20:00 07/17/16 19:59 06/18/16 13:32 Pantoprazole (Protonix) 40 mg ACBREAKFAST ORAL 06/18/16 10:00 07/18/16 09:59 06/19/16 06:17 Polyethylene Glycol (Miralax) 17 gm HSPRN PRN ORAL Constipation FIRST LINE AGENT 06/17/16 20:00 07/17/16 19:59 Sucralfate (Carafate) 1 gm TIAC ORAL 06/18/16 11:30 07/18/16 11:29 06/19/16 11:45 Tbo-Filgrastim (Granix) 300 mcg BIOTEC SQ 06/19/16 13:00 07/19/16 12:59 06/19/16 13:16 Zolpidem Tartrate (Ambien) 5 mg HSPRN PRN ORAL Insomnia 06/17/16 20:00 07/17/16 19:59 EMPERATRIZ SOLER Jun 19, 2016 23:29
[2016-06-20] VITALS (7 sets, daily range): BP systolic 114–144; BP diastolic 51–70
[2016-06-20] MEDS: Sucralfate 1gm tab ORAL SCH ×3 (06:03→16:41)
[2016-06-20] MEDS: metroNIDAZOLE 500mg tab ORAL SCH ×3 (06:03→21:25)
[2016-06-20] MEDS: NovoLOG Insulin Flexpen SUBQ SCH ×4 (06:18→21:00)
[2016-06-20 06:44] LABS: MEAN CORPUSCULAR HEMOGLOBIN 31.3 PG (27.0-31.0); MEAN CORPUSCULAR HGB CONC 32.4 G/DL (32.0-36.0); MEAN CORPUSCULAR VOLUME 97 FL (80-99); PLATELET COUNT 38 K/UL (150-450); RED BLOOD COUNT 2.42 M/UL (4.20-5.40); RED CELL DISTRIBUTION WIDTH 14.3 % (11.6-14.8)
[2016-06-20 06:47] LABS: WHITE BLOOD COUNT 0.5 K/UL (4.8-10.8)
[2016-06-20 07:03] LABS: ANION GAP 15 (5-15); CARBON DIOXIDE 26 mEQ/L (20-30); CHLORIDE 95 mEQ/L (98-107); CREATININE 0.6 mg/dL (0.5-0.9); HEMOLYSIS 2; POTASSIUM 3.5 mEQ/L (3.4-4.9); SODIUM 136 mEQ/L (135-145)
[2016-06-20] MEDS: Atenolol 25mg tab ORAL SCH ×2 (08:33→21:25)
[2016-06-20 08:39] LABS: ANISOCYTOSIS 1+; BAND NEUTROPHILS % (MANUAL) 2 % (0-8); BASOPHILS % (MANUAL) 2 % (0-2); EOSINOPHILS % (MANUAL) 11 % (0-3); HYPOCHROMASIA 3+; LYMPHOCYTES % (MANUAL) 41 % (20-45); NEUTROPHILS % (MANUAL) 12 % (45-75); PLATELET ESTIMATE DECREASED; PLATELET MORPHOLOGY NORMAL; SPHEROCYTES 2+; TOTAL CELLS COUNTED 100
--- NOTE | 2016-06-20 15:08 | Consultation ---
DATE OF CONSULTATION: 06/19/2016 ATTENDING PHYSICIAN: Donald Sánchez M.D. CONSULTING PHYSICIAN: Juliana Garcia M.D. REFERRING PHYSICIAN: I was asked by Adan Martin M.D. to see this patient. REASON FOR CONSULTATION: C. difficile colitis and sepsis. CHIEF COMPLAINT: Weakness and fatigue. HISTORY OF PRESENT ILLNESS: This is an 86-year-old female who does not speak Polish. I got the history from the records. The patient presents to [facility] with fatigue and weakness. The patient has low-grade temperature and is severely neutropenic. The patient had diarrhea and C. difficile was positive toxin test. The patient's C. difficile toxin assay was positive with regard to toxin A and B. The patient likely has C. difficile colitis with sepsis. ID consult requested. The patient has been appropriately started on Flagyl p.o. Blood culture so far is negative. Chest x-ray shows no pneumonia. UA had only 2 to 4 white blood cells and few bacteria only. The patient will continue on p.o. Flagyl. MAR was noted. Orders were noted. Notes and records were reviewed. Case discussed with RN at the bedside and the patient. REVIEW OF SYSTEMS: The patient's chief complaint, comes in with fatigue and weakness. She has low-grade temperatures. No obvious chills seen. Head and neck: No head pain, neck pain, no neck stiffness. Cardiac: No chest pain or pressure. Gastrointestinal: She has diarrhea. No nausea or vomiting. Pulmonary: No congestion or shortness of breath. Skin: No rash. Extremities: No extremity pain. PAST MEDICAL HISTORY: Includes the following. The patient has a past medical history of lymphoma, chemotherapy, which is currently on diabetes, hypertension, and hypercholesterolemia. She is pancytopenic with thrombocytopenia, anemia, and neutropenia. The patient has weakness and fatigue. Please see past medical history in medical order. ALLERGIES: No known drug allergies. FAMILY HISTORY: Noncontributory. Negative for exposure towards the cancer. SOCIAL HISTORY: Negative for smoking, alcohol, or drug use. MEDICATIONS: Upon reviewing the MAR, the patient is on following medications: The patient is on Flagyl, Granulex, Aricept, glipizide, Avapro, Carafate, Tenormin, Protonix, NovoLog, insulin, [place], Tylenol, Morphine, MiraLAX, Zofran, Ativan, Ambien, and Mylanta. Please see medications in the medical order, past medical history in the medical order. PHYSICAL EXAMINATION: VITAL SIGNS: Temperature maximum 99.5, temperature now 97.9, pulse rate 76, respiratory rate 20, blood pressure 145/73, and saturation 98%, and pulse rate 76 GENERAL: Alert, responsive, in no acute distress. She has weakness noted, but is responsive. HEAD AND NECK: Oral exam, no thrush. Eye exam, no icterus. Neck is supple. No JVD. No sinus tenderness. Normocephalic. No facial droop. No neck stiffness. HEART: Regular. No gallop or murmur. No friction rub. ABDOMEN: Soft. Positive bowel sounds. Nontender. no rebound LUNGS: Clear bilaterally. No rhonchi or rales. SKIN: No rash or dermatitis. MUSCULOSKELETAL: effusions PERIPHERAL VASCULAR: No cyanosis or gangrene. RECTAL: Deferred. GENITOURINARY: The patient has no Dominique. Line sites is without phlebitis. NEUROLOGIC: Generalized weakness. Responsive. LABORATORY AND DIAGNOSTIC DATA: Laboratory data as follows, UA had 2 to 4 blood cells. Chest x-ray is negative for pneumonia. Blood cultures are negative today. White count 0.5, hemoglobin 7.8, platelet count 44, creatinine 0.6. LDH was 211. C. difficile toxin assay was positive for toxin A and B. ASSESSMENT AND PLAN: 1. The patient has C. difficile colitis, diarrhea, possible sepsis, sirs criteria including elevated heart rate and neutropenia. The patient has a risk of neutropenic sepsis. Blood cultures are negative to date. At this time, we will continue p.o. Flagyl for C. difficile colitis and watching the patient currently. If the diarrhea persists, I will have the low threshold transition to p.o. vancomycin, however, we will give a trial of p.o. Flagyl and see how she does. If she starts spiking temperatures then we will consider starting abx because she is a risk for gram-negative sepsis. So far blood cultures are negative and temperature right now she is afebrile. 2. Lymphoma and chemotherapy. 3. Diabetes. 4. Hypertension. 5. Hypercholesterolemia. 6. Anemia, thrombocytopenia, neutropenia with pancytopenia. 7. No known allergies. 8. fh-nc 9. Social history is negative. 10. Continue treatment per primary sales consultant residential manager. 11. MAR was noted. 12. Case discussed with RN. 13. orders noted 14. Notes were reviewed. Juliana Garcia M.D. DR: KOKO JOB#: [id number] CC: PAULA
--- NOTE | 2016-06-20 15:39 | Internal Med Progress Note ---
Subjective Date of Service: Jun 20, 2016 Physician Name Adan Martin Attending Physician Donald Sánchez MD Current Medications Medications (Trade) Dose Ordered Sig/Sharita Route PRN Reason Start Time Stop Time Status Last Admin Dose Admin Acetaminophen (Tylenol) 650 mg Q4H PRN ORAL fever 06/17/16 20:00 07/17/16 19:59 06/20/16 01:00 Acetaminophen/ Hydrocodone Bitart ([place] 5/325) 1 tab Q6H PRN ORAL Moderate Pain (Pain Scale 4-6) 06/17/16 20:15 06/24/16 20:14 Al Hydroxide/Mg Hydroxide (Mylanta II) 30 ml Q6H PRN ORAL dyspepsia 06/17/16 20:00 07/17/16 19:59 Atenolol (Tenormin) 25 mg Q12HR ORAL 06/18/16 10:00 07/18/16 09:59 06/20/16 08:33 Dextrose (Dextrose 50%) STAT PRN IV Hypoglycemia 06/17/16 20:00 07/17/16 19:59 Donepezil HCl (Aricept) 5 mg QHS ORAL 06/18/16 21:00 07/18/16 20:59 06/19/16 21:42 Glipizide (GlipiZIDE XL) 2.5 mg BIAC ORAL 06/18/16 16:30 07/18/16 16:29 06/20/16 06:03 Insulin Aspart (NovoLOG) BEFORE MEALS AND HS SUBQ 06/17/16 21:00 07/17/16 20:59 06/20/16 12:25 Irbesartan (Avapro) 75 mg DAILY ORAL 06/18/16 12:00 07/18/16 11:59 06/20/16 08:33 Lorazepam (Ativan 2mg/ml 1ml) 0.5 mg Q4H PRN IV For Anxiety 06/17/16 20:00 06/24/16 19:59 Metronidazole (Flagyl) 500 mg Q8HR ORAL 06/19/16 18:00 06/26/16 17:59 06/20/16 13:45 Morphine Sulfate (Morphine Sulfate) 1 mg Q4H PRN IVP For Pain 4-10 06/17/16 20:00 06/24/16 19:59 Ondansetron HCl (Zofran) 4 mg Q6H PRN IVP Nausea & Vomiting 06/17/16 20:00 07/17/16 19:59 06/18/16 13:32 Pantoprazole (Protonix) 40 mg ACBREAKFAST ORAL 06/18/16 10:00 07/18/16 09:59 06/20/16 06:03 Polyethylene Glycol (Miralax) 17 gm HSPRN PRN ORAL Constipation FIRST LINE AGENT 06/17/16 20:00 07/17/16 19:59 Sucralfate (Carafate) 1 gm TIAC ORAL 06/18/16 11:30 07/18/16 11:29 06/20/16 12:23 Tbo-Filgrastim (Granix) 300 mcg BIOTEC SQ 06/19/16 13:00 07/19/16 12:59 06/19/16 13:16 Zolpidem Tartrate (Ambien) 5 mg HSPRN PRN ORAL Insomnia 06/17/16 20:00 07/17/16 19:59 Allergies: Coded Allergies: No Known Allergies (Unverified , 02/22/16) ROS Limited/Unobtainable: Yes Subjective 86 YO F with lymphoma admitted with generalized weakness and fatigue. Now anemia and neutropenia. Await heme/onc consult. Cover for Int Med-Dr Sánchez. Objective Last Vital Signs Date Time Temp Pulse Resp B/P Pulse Ox O2 Delivery O2 Flow Rate FiO2 06/20/16 11:58 97.7 82 21 114/67 97 Room Air Laboratory Tests Test 06/20/16 06:15 White Blood Count 0.5 K/UL (4.8-10.8) *L Red Blood Count 2.42 M/UL (4.20-5.40) L Hemoglobin 7.6 G/DL (12.0-16.0) L Hematocrit 23.4 % (37.0-47.0) L Mean Corpuscular Volume 97 FL (80-99) Mean Corpuscular Hemoglobin 31.3 PG (27.0-31.0) H Mean Corpuscular Hemoglobin Concent 32.4 G/DL (32.0-36.0) Red Cell Distribution Width 14.3 % (11.6-14.8) Platelet Count 38 K/UL (150-450) L Mean Platelet Volume 12.0 FL (6.5-10.1) H Neutrophils (%) (Auto) % (45.0-75.0) Lymphocytes (%) (Auto) % (20.0-45.0) Monocytes (%) (Auto) % (1.0-10.0) Eosinophils (%) (Auto) % (0.0-3.0) Basophils (%) (Auto) % (0.0-2.0) Differential Total Cells Counted 100 Neutrophils % (Manual) 12 % (45-75) L Lymphocytes % (Manual) 41 % (20-45) Monocytes % (Manual) 32 % (1-10) H Eosinophils % (Manual) 11 % (0-3) H Basophils % (Manual) 2 % (0-2) Band Neutrophils 2 % (0-8) Platelet Estimate Decreased L Platelet Morphology Normal Hypochromasia 3+ Anisocytosis 1+ Spherocytes 2+ Sodium Level 136 mEQ/L (135-145) Potassium Level 3.5 mEQ/L (3.4-4.9) Chloride Level 95 mEQ/L (98-107) L Carbon Dioxide Level 26 mEQ/L (20-30) Anion Gap 15 (5-15) Blood Urea Nitrogen 11 mg/dL (7-23) Creatinine 0.6 mg/dL (0.5-0.9) Estimat Glomerular Filtration Rate mL/min (>60) Glucose Level 122 mg/dL (74-106) H Calcium Level 9.0 mg/dL (8.6-10.2) Microbiology Date/Time Source Procedure Growth Status 06/17/16 20:30 Blood Blood Culture - Preliminary NO GROWTH AFTER 48 HOURS Resulted 06/17/16 20:30 Blood Blood Culture - Preliminary NO GROWTH AFTER 48 HOURS Resulted 06/18/16 17:30 Stool Clostridium difficile Toxin Assay - Final Complete Intake and Output 06/19/16 06/20/16 19:00 07:00 Intake Total 300 ml Balance 300 ml Intake Oral 300 ml # Voids 3 3 # Bowel Movements 6 4 Objective General Appearance: cachetic, lethargic, thin EENT: PERRL/EOMI, normal ENT inspection Neck: non-tender, normal alignment, supple Cardiovascular: normal peripheral pulses, normal rate, regular rhythm, no gallop/murmur, no JVD Respiratory/Chest: chest wall non-tender, lungs clear, normal breath sounds, no respiratory distress, no accessory muscle use Abdomen: normal bowel sounds, non tender, soft, no organomegaly, no mass Extremities: normal range of motion, non-tender 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 Neutropenic precautions. See ID consult. (2) Severe anemia (3) Generalized weakness (4) Fatigue (5) HTN (hypertension) Assessment & Plan: Cont avapro and atenolol (6) Diabetes (7) Lymphoma Assessment & Plan: Await onc consult-Dr Germain. (8) C. difficile diarrhea Assessment & Plan: See ID consult. Continue flagyl.PO Status: deteriorating ADAN MARTIN Jun 20, 2016 15:39
[2016-06-20] MEDS: NS w/KCl 20mEq 1,000 ML IV SCH (16:41)
--- NOTE | 2016-06-20 20:37 | Pulmonology Progress Note ---
Assessment/Plan Problems: (1) Symptomatic anemia (2) Episode of generalized weakness (3) Diabetes (4) Lymphoma (5) HTN (hypertension) Subjective Allergies: Coded Allergies: No Known Allergies (Unverified , 02/22/16) Objective Last 24 Hour Vital Signs Date Time Temp Pulse Resp B/P Pulse Ox O2 Delivery O2 Flow Rate FiO2 06/20/16 16:00 98.4 86 18 123/66 99 Room Air 06/20/16 11:58 97.7 82 21 114/67 97 Room Air 06/20/16 11:54 97.7 68 21 117/70 97 Room Air 06/20/16 08:33 76 119/51 06/20/16 08:33 119/51 06/20/16 08:15 96.7 76 21 119/51 97 Room Air 06/20/16 04:00 97.9 80 18 128/69 100 Room Air 06/20/16 01:59 97.9 06/20/16 00:00 100.2 83 18 144/67 99 Room Air 06/19/16 21:42 74 141/66 Intake and Output 06/19/16 06/20/16 19:00 07:00 Intake Total 300 ml Balance 300 ml Intake Oral 300 ml # Voids 3 3 # Bowel Movements 6 4 Microbiology Date/Time Source Procedure Growth Status 06/18/16 17:30 Stool Clostridium difficile Toxin Assay - Final Complete Laboratory Tests 06/20/16 06:15: White Blood Count 0.5*L, Red Blood Count 2.42L, Hemoglobin 7.6L, Hematocrit 23.4L, Mean Corpuscular Volume 97, Mean Corpuscular Hemoglobin 31.3H, Mean Corpuscular Hemoglobin Concent 32.4, Red Cell Distribution Width 14.3, Platelet Count 38L, Mean Platelet Volume 12.0H, Neutrophils (%) (Auto) , Lymphocytes (%) (Auto) , Monocytes (%) (Auto) , Eosinophils (%) (Auto) , Basophils (%) (Auto) , Differential Total Cells Counted 100, Neutrophils % (Manual) 12L, Lymphocytes % (Manual) 41, Monocytes % (Manual) 32H, Eosinophils % (Manual) 11H, Basophils % ( Manual) 2, Band Neutrophils 2, Platelet Estimate DecreasedL, Platelet Morphology Normal, Hypochromasia 3+, Anisocytosis 1+, Spherocytes 2+, Sodium Level 136, Potassium Level 3.5, Chloride Level 95L, Carbon Dioxide Level 26, Anion Gap 15, Blood Urea Nitrogen 11, Creatinine 0.6, Estimat Glomerular Filtration Rate , Glucose Level 122H, Calcium Level 9.0 Current Medications Medications (Trade) Dose Ordered Sig/Sharita Route PRN Reason Start Time Stop Time Status Last Admin Dose Admin Acetaminophen (Tylenol) 650 mg Q4H PRN ORAL fever 06/17/16 20:00 07/17/16 19:59 06/20/16 01:00 Acetaminophen/ Hydrocodone Bitart ([place] 5/325) 1 tab Q6H PRN ORAL Moderate Pain (Pain Scale 4-6) 06/17/16 20:15 06/24/16 20:14 Al Hydroxide/Mg Hydroxide (Mylanta II) 30 ml Q6H PRN ORAL dyspepsia 06/17/16 20:00 07/17/16 19:59 Atenolol (Tenormin) 25 mg Q12HR ORAL 06/18/16 10:00 07/18/16 09:59 06/20/16 08:33 Dextrose (Dextrose 50%) STAT PRN IV Hypoglycemia 06/17/16 20:00 07/17/16 19:59 Donepezil HCl (Aricept) 5 mg QHS ORAL 06/18/16 21:00 07/18/16 20:59 06/19/16 21:42 Glipizide (GlipiZIDE XL) 2.5 mg BIAC ORAL 06/18/16 16:30 07/18/16 16:29 06/20/16 16:41 Insulin Aspart (NovoLOG) BEFORE MEALS AND HS SUBQ 06/17/16 21:00 07/17/16 20:59 06/20/16 12:25 Irbesartan (Avapro) 75 mg DAILY ORAL 06/18/16 12:00 07/18/16 11:59 06/20/16 08:33 Lorazepam (Ativan 2mg/ml 1ml) 0.5 mg Q4H PRN IV For Anxiety 06/17/16 20:00 06/24/16 19:59 Metronidazole 500 mg 500 mg Q8HR ORAL 06/19/16 18:00 06/26/16 17:59 06/20/16 13:45 Morphine Sulfate (Morphine Sulfate) 1 mg Q4H PRN IVP For Pain -10 06/17/16 20:00 06/24/16 19:59 Ondansetron HCl (Zofran) 4 mg Q6H PRN IVP Nausea & Vomiting 06/17/16 20:00 07/17/16 19:59 06/18/16 13:32 Pantoprazole (Protonix) 40 mg ACBREAKFAST ORAL 06/18/16 10:00 07/18/16 09:59 06/20/16 06:03 Polyethylene Glycol (Miralax) 17 gm HSPRN PRN ORAL Constipation FIRST LINE AGENT 06/17/16 20:00 07/17/16 19:59 Sodium Chloride (NS w/KCl 20mEq) 1,000 ml @ 50 mls/hr Q20H IV 06/20/16 16:15 07/20/16 16:14 06/20/16 16:41 Sucralfate (Carafate) 1 gm TIAC ORAL 06/18/16 11:30 07/18/16 11:29 06/20/16 16:41 Tbo-Filgrastim (Granix) 300 mcg BIOTEC SQ 06/19/16 13:00 07/19/16 12:59 06/19/16 13:16 Zolpidem Tartrate (Ambien) 5 mg HSPRN PRN ORAL Insomnia 06/17/16 20:00 07/17/16 19:59 EMPERATRIZ SOLER Jun 20, 2016 20:37
[2016-06-20] MEDS: Donepezil 5mg Tab ORAL SCH (21:25)
[2016-06-20] MEDS: TBO-Filgrastim 300 mcg/0.5ml SQ NR (21:27)
[2016-06-21] VITALS (7 sets, daily range): BP systolic 116–144; BP diastolic 59–68
[2016-06-21] MEDS: metroNIDAZOLE 500mg tab ORAL SCH ×3 (06:27→21:03)
[2016-06-21] MEDS: Sucralfate 1gm tab ORAL SCH ×3 (06:28→17:10)
[2016-06-21] MEDS: NovoLOG Insulin Flexpen SUBQ SCH ×4 (06:32→20:59)
[2016-06-21 08:04] LABS: ANION GAP 17 (5-15); CALCIUM 8.8 mg/dL (8.6-10.2); CARBON DIOXIDE 23 mEQ/L (20-30); CHLORIDE 98 mEQ/L (98-107); CREATININE 0.6 mg/dL (0.5-0.9); HEMOLYSIS 4; POTASSIUM 3.5 mEQ/L (3.4-4.9); SODIUM 138 mEQ/L (135-145)
[2016-06-21] MEDS: Atenolol 25mg tab ORAL SCH ×2 (08:40→21:03)
[2016-06-21 10:04] LABS: MEAN CORPUSCULAR HEMOGLOBIN 30.8 PG (27.0-31.0); MEAN CORPUSCULAR HGB CONC 32.2 G/DL (32.0-36.0); MEAN CORPUSCULAR VOLUME 96 FL (80-99); PLATELET COUNT 44 K/UL (150-450); RED BLOOD COUNT 2.48 M/UL (4.20-5.40); RED CELL DISTRIBUTION WIDTH 13.5 % (11.6-14.8); WHITE BLOOD COUNT 2.5 K/UL (4.8-10.8)
[2016-06-21 10:45] LABS: BAND NEUTROPHILS % (MANUAL) 11 % (0-8); BASOPHILS % (MANUAL) 0 % (0-2); EOSINOPHILS % (MANUAL) 1 % (0-3); LYMPHOCYTES % (MANUAL) 13 % (20-45); NEUTROPHILS % (MANUAL) 62 % (45-75); PLATELET ESTIMATE DECREASED; TOTAL CELLS COUNTED 100
[2016-06-21 10:46] LABS: ANISOCYTOSIS 1+; HYPOCHROMASIA 1+
[2016-06-21 11:19] LABS: OTHERS PATHOLOGIST COMMENT
--- NOTE | 2016-06-21 12:10 | Infectious Diseases Prog Note ---
Assessment/Plan Assessment/Plan A) 1) c.diff. colitis, diarrhea, possible sepsis, lgt, sirs criteria met, bc- negative - diarrhea better, fevers better, leukopenia better 2) lweakness, fatigue, anemai, thrombocytopenia, neutropenia 3) lymphoma, dm, htn, chemo, hypercholesteremia 4) allergies - negative, fh-nc, sh-negative, mar noted, notes and records reviewed 5) d/w RN P) 1) flagyl po - day # 3 (plan on 10-14 day treatment course) 2) check final cultures, check labs 3) continue treatment per primary and consultants 4) orders entered and noted 5) d/w daughter and answered questions Subjective Constitutional: Reports: other - lgt previously , Denies: fever HEENT: Denies: congestion Respiratory: Denies: shortness of breath Cardiovascular: Denies: chest pain, palpitations Gastrointestinal/Abdominal: Reports: diarrhea - diarrhea better, Denies: nausea , vomiting Neurologic: Reports: other - no focal weakness, Denies: headache Psychiatric: Denies: depression Skin: Denies: rash Hematologic: Denies: bleeding Musculoskeletal: Denies: pain Allergies: Coded Allergies: No Known Allergies (Unverified , 02/22/16) Objective Vital Signs Last 24 Hour Vital Signs Date Time Temp Pulse Resp B/P Pulse Ox O2 Delivery O2 Flow Rate FiO2 06/21/16 11:55 97.7 85 16 116/64 100 Room Air 06/21/16 08:40 82 135/60 06/21/16 08:40 135/60 06/21/16 07:51 97.0 82 15 135/60 100 Room Air 06/21/16 04:00 97.2 75 18 131/59 99 Room Air 06/21/16 00:00 97.0 85 18 133/60 100 Room Air 06/20/16 21:25 86 138/60 06/20/16 20:00 98.2 86 17 138/60 98 Room Air 06/20/16 16:00 98.4 86 18 123/66 99 Room Air Height (Feet): 5 Height (Inches): 0.00 Weight (Pounds): 120 General Appearance: no acute distress HEENT: normocephalic, atraumatic, anicteric, mucous membranes moist, PERRL, EOMI, pharynx normal, supple, no JVD Respiratory/Chest: lungs clear, normal breath sounds, no respiratory distress Cardiovascular: normal rate, regular rhythm, no gallop/murmur, no JVD Abdomen: normal bowel sounds, soft, non tender, no organomegaly, non distended Genitourinary: other - no escobar Extremities: no cyanosis Skin: no rash 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/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: 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, alert, oriented x 3, responsive Lymphatic: no neck adenopathy Musculoskeletal: no effusion Objective chest x-ray - nad (reviewed, report noted) Microbiology Date/Time Source Procedure Growth Status 06/18/16 17:30 Stool Clostridium difficile Toxin Assay - Final Complete c.diff - + bc - negative ua - 2-4 wbc Laboratory Tests Test 06/21/16 05:45 06/21/16 09:35 Sodium Level 138 mEQ/L (135-145) Potassium Level 3.5 mEQ/L (3.4-4.9) Chloride Level 98 mEQ/L (98-107) Carbon Dioxide Level 23 mEQ/L (20-30) Anion Gap 17 (5-15) H Blood Urea Nitrogen 7 mg/dL (7-23) Creatinine 0.6 mg/dL (0.5-0.9) Estimat Glomerular Filtration Rate mL/min (>60) Glucose Level 102 mg/dL (74-106) Calcium Level 8.8 mg/dL (8.6-10.2) White Blood Count 2.5 K/UL (4.8-10.8) #L Red Blood Count 2.48 M/UL (4.20-5.40) L Hemoglobin 7.6 G/DL (12.0-16.0) L Hematocrit 23.7 % (37.0-47.0) L Mean Corpuscular Volume 96 FL (80-99) Mean Corpuscular Hemoglobin 30.8 PG (27.0-31.0) Mean Corpuscular Hemoglobin Concent 32.2 G/DL (32.0-36.0) Red Cell Distribution Width 13.5 % (11.6-14.8) Platelet Count 44 K/UL (150-450) L Mean Platelet Volume 11.0 FL (6.5-10.1) H Neutrophils (%) (Auto) % (45.0-75.0) Lymphocytes (%) (Auto) % (20.0-45.0) Monocytes (%) (Auto) % (1.0-10.0) Eosinophils (%) (Auto) % (0.0-3.0) Basophils (%) (Auto) % (0.0-2.0) Differential Total Cells Counted 100 Neutrophils % (Manual) 62 % (45-75) Lymphocytes % (Manual) 13 % (20-45) L Monocytes % (Manual) 13 % (1-10) H Eosinophils % (Manual) 1 % (0-3) Basophils % (Manual) 0 % (0-2) Band Neutrophils 11 % (0-8) H Platelet Estimate Decreased L Platelet Morphology Giant Platelets Rare Hypochromasia 1+ Anisocytosis 1+ Current Medications Medications (Trade) Dose Ordered Sig/Sharita Route PRN Reason Start Time Stop Time Status Last Admin Dose Admin Acetaminophen (Tylenol) 650 mg Q4H PRN ORAL fever 06/17/16 20:00 07/17/16 19:59 06/20/16 01:00 Acetaminophen/ Hydrocodone Bitart ([place] 5/325) 1 tab Q6H PRN ORAL Moderate Pain (Pain Scale 4-6) 06/17/16 20:15 06/24/16 20:14 Al Hydroxide/Mg Hydroxide (Mylanta II) 30 ml Q6H PRN ORAL dyspepsia 06/17/16 20:00 07/17/16 19:59 Atenolol (Tenormin) 25 mg Q12HR ORAL 06/18/16 10:00 07/18/16 09:59 06/21/16 08:40 Dextrose (Dextrose 50%) STAT PRN IV Hypoglycemia 06/17/16 20:00 07/17/16 19:59 Donepezil HCl (Aricept) 5 mg QHS ORAL 06/18/16 21:00 07/18/16 20:59 06/20/16 21:25 Glipizide (GlipiZIDE XL) 2.5 mg BIAC ORAL 06/18/16 16:30 07/18/16 16:29 06/21/16 06:27 Insulin Aspart (NovoLOG) BEFORE MEALS AND HS SUBQ 06/17/16 21:00 07/17/16 20:59 06/21/16 06:32 Irbesartan (Avapro) 75 mg DAILY ORAL 06/18/16 12:00 07/18/16 11:59 06/21/16 08:40 Lorazepam (Ativan 2mg/ml 1ml) 0.5 mg Q4H PRN IV For Anxiety 06/17/16 20:00 06/24/16 19:59 Metronidazole 500 mg 500 mg Q8HR ORAL 06/19/16 18:00 06/26/16 17:59 06/21/16 06:27 Morphine Sulfate (Morphine Sulfate) 1 mg Q4H PRN IVP For Pain 06-2306/17/16 20:00 06/24/16 19:59 Ondansetron HCl (Zofran) 4 mg Q6H PRN IVP Nausea & Vomiting 06/17/16 20:00 07/17/16 19:59 06/18/16 13:32 Pantoprazole (Protonix) 40 mg ACBREAKFAST ORAL 06/18/16 10:00 07/18/16 09:59 06/21/16 06:29 Polyethylene Glycol (Miralax) 17 gm HSPRN PRN ORAL Constipation FIRST LINE AGENT 06/17/16 20:00 07/17/16 19:59 Sodium Chloride (NS w/KCl 20mEq) 1,000 ml @ 50 mls/hr Q20H IV 06/20/16 16:15 07/20/16 16:14 06/20/16 16:41 Sucralfate (Carafate) 1 gm TIAC ORAL 06/18/16 11:30 07/18/16 11:29 06/21/16 06:28 Tbo-Filgrastim (Granix) 300 mcg BIOTEC SQ 06/19/16 13:00 07/19/16 12:59 06/20/16 21:27 Zolpidem Tartrate (Ambien) 5 mg HSPRN PRN ORAL Insomnia 06/17/16 20:00 07/17/16 19:59 LORE JACOBSEN Jun 21, 2016 12:09
[2016-06-21] MEDS: NS w/KCl 20mEq 1,000 ML IV SCH (13:31)
--- NOTE | 2016-06-21 14:30 | Internal Med Progress Note ---
Subjective Date of Service: Jun 21, 2016 Physician Name Martin,Linn Attending Physician Donald Sánchez MD Current Medications Medications (Trade) Dose Ordered Sig/Sharita Route PRN Reason Start Time Stop Time Status Last Admin Dose Admin Acetaminophen (Tylenol) 650 mg Q4H PRN ORAL fever 06/17/16 20:00 07/17/16 19:59 06/20/16 01:00 Acetaminophen/ Hydrocodone Bitart ([place] 5/325) 1 tab Q6H PRN ORAL Moderate Pain (Pain Scale 4-6) 06/17/16 20:15 06/24/16 20:14 Al Hydroxide/Mg Hydroxide (Mylanta II) 30 ml Q6H PRN ORAL dyspepsia 06/17/16 20:00 07/17/16 19:59 Atenolol (Tenormin) 25 mg Q12HR ORAL 06/18/16 10:00 07/18/16 09:59 06/21/16 08:40 Dextrose (Dextrose 50%) STAT PRN IV Hypoglycemia 06/17/16 20:00 07/17/16 19:59 Donepezil HCl (Aricept) 5 mg QHS ORAL 06/18/16 21:00 07/18/16 20:59 06/20/16 21:25 Glipizide (GlipiZIDE XL) 2.5 mg BIAC ORAL 06/18/16 16:30 07/18/16 16:29 06/21/16 06:27 Insulin Aspart (NovoLOG) BEFORE MEALS AND HS SUBQ 06/17/16 21:00 07/17/16 20:59 06/21/16 12:37 Irbesartan (Avapro) 75 mg DAILY ORAL 06/18/16 12:00 07/18/16 11:59 06/21/16 08:40 Lorazepam (Ativan 2mg/ml 1ml) 0.5 mg Q4H PRN IV For Anxiety 06/17/16 20:00 06/24/16 19:59 Metronidazole 500 mg 500 mg Q8HR ORAL 06/19/16 18:00 06/26/16 17:59 06/21/16 13:31 Morphine Sulfate (Morphine Sulfate) 1 mg Q4H PRN IVP For Pain 4-10 06/17/16 20:00 06/24/16 19:59 Ondansetron HCl (Zofran) 4 mg Q6H PRN IVP Nausea & Vomiting 06/17/16 20:00 07/17/16 19:59 06/18/16 13:32 Pantoprazole (Protonix) 40 mg ACBREAKFAST ORAL 06/18/16 10:00 07/18/16 09:59 06/21/16 06:29 Polyethylene Glycol (Miralax) 17 gm HSPRN PRN ORAL Constipation FIRST LINE AGENT 06/17/16 20:00 07/17/16 19:59 Sodium Chloride (NS w/KCl 20mEq) 1,000 ml @ 50 mls/hr Q20H IV 06/20/16 16:15 07/20/16 16:14 06/21/16 13:31 Sucralfate (Carafate) 1 gm TIAC ORAL 06/18/16 11:30 07/18/16 11:29 06/21/16 12:34 Tbo-Filgrastim (Granix) 300 mcg BIOTEC SQ 06/19/16 13:00 07/19/16 12:59 06/20/16 21:27 Zolpidem Tartrate (Ambien) 5 mg HSPRN PRN ORAL Insomnia 06/17/16 20:00 07/17/16 19:59 Allergies: Coded Allergies: No Known Allergies (Unverified , 02/22/16) ROS Limited/Unobtainable: No Constitutional: Reports: no symptoms HEENT: Reports: no symptoms Cardiovascular: Reports: no symptoms Respiratory: Reports: no symptoms Gastrointestinal/Abdominal: Reports: no symptoms Genitourinary: Reports: no symptoms Neurologic/Psychiatric: Reports: no symptoms Subjective 86 YO F with lymphoma admitted with generalized weakness and fatigue. Now anemia and neutropenia. Await heme/onc consult. Cover for Int Med-Dr Sánchez. Objective Last Vital Signs Date Time Temp Pulse Resp B/P Pulse Ox O2 Delivery O2 Flow Rate FiO2 06/21/16 11:55 97.7 85 16 116/64 100 Room Air Laboratory Tests Test 06/21/16 05:45 06/21/16 09:35 Sodium Level 138 mEQ/L (135-145) Potassium Level 3.5 mEQ/L (3.4-4.9) Chloride Level 98 mEQ/L (98-107) Carbon Dioxide Level 23 mEQ/L (20-30) Anion Gap 17 (5-15) H Blood Urea Nitrogen 7 mg/dL (7-23) Creatinine 0.6 mg/dL (0.5-0.9) Estimat Glomerular Filtration Rate mL/min (>60) Glucose Level 102 mg/dL (74-106) Calcium Level 8.8 mg/dL (8.6-10.2) White Blood Count 2.5 K/UL (4.8-10.8) #L Red Blood Count 2.48 M/UL (4.20-5.40) L Hemoglobin 7.6 G/DL (12.0-16.0) L Hematocrit 23.7 % (37.0-47.0) L Mean Corpuscular Volume 96 FL (80-99) Mean Corpuscular Hemoglobin 30.8 PG (27.0-31.0) Mean Corpuscular Hemoglobin Concent 32.2 G/DL (32.0-36.0) Red Cell Distribution Width 13.5 % (11.6-14.8) Platelet Count 44 K/UL (150-450) L Mean Platelet Volume 11.0 FL (6.5-10.1) H Neutrophils (%) (Auto) % (45.0-75.0) Lymphocytes (%) (Auto) % (20.0-45.0) Monocytes (%) (Auto) % (1.0-10.0) Eosinophils (%) (Auto) % (0.0-3.0) Basophils (%) (Auto) % (0.0-2.0) Differential Total Cells Counted 100 Neutrophils % (Manual) 62 % (45-75) Lymphocytes % (Manual) 13 % (20-45) L Monocytes % (Manual) 13 % (1-10) H Eosinophils % (Manual) 1 % (0-3) Basophils % (Manual) 0 % (0-2) Band Neutrophils 11 % (0-8) H Platelet Estimate Decreased L Platelet Morphology Giant Platelets Rare Hypochromasia 1+ Anisocytosis 1+ Microbiology Date/Time Source Procedure Growth Status 06/18/16 17:30 Stool Clostridium difficile Toxin Assay - Final Complete Intake and Output 06/20/16 06/21/16 19:00 07:00 Intake Total 780 ml 830 ml Balance 780 ml 830 ml Intake Oral 680 ml 430 ml IV Total 100 ml 400 ml # Voids 3 4 # Bowel Movements 5 2 Objective General Appearance: cachetic, lethargic, thin EENT: PERRL/EOMI, normal ENT inspection Neck: non-tender, normal alignment, supple Cardiovascular: normal peripheral pulses, normal rate, regular rhythm, no gallop/murmur, no JVD Respiratory/Chest: chest wall non-tender, lungs clear, normal breath sounds, no respiratory distress, no accessory muscle use Abdomen: normal bowel sounds, non tender, soft, no organomegaly, no mass Extremities: normal range of motion, non-tender Neurologic: 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 Resolving; D/C Neutropenic precautions. See ID consult. (2) Severe anemia (3) Generalized weakness (4) Fatigue (5) HTN (hypertension) Assessment & Plan: Cont avapro and atenolol (6) Diabetes (7) Lymphoma Assessment & Plan: Await onc consult-Dr Germain. (8) C. difficile diarrhea Assessment & Plan: See ID consult. Continue flagyl.PO Status: progressing LINN MARTIN Jun 21, 2016 14:30
[2016-06-21] MEDS ORDERED: ACETAMINOPHEN325 M1 ORAL (18:44)
[2016-06-21] MEDS ORDERED: MYLANTA II30 ML ORAL (18:45)
[2016-06-21] MEDS ORDERED: ATENOLOL25 MG ORAL (18:47)
[2016-06-21] MEDS ORDERED: GLIPIZIDE5 MG ORAL (18:48)
[2016-06-21] MEDS ORDERED: ARICEPT5 MG ORAL (18:48)
[2016-06-21] MEDS ORDERED: AVAPRO75 MG ORAL (18:49)
[2016-06-21] MEDS ORDERED: NOVOLOG100 UNIT/3 SUBQ (18:49)
[2016-06-21] MEDS ORDERED: NORCO 5-325 TA1 EAC1 ORAL (18:49)
[2016-06-21] MEDS ORDERED: LORAZEPAM2 MG/1 M1 IV (18:50)
[2016-06-21] MEDS ORDERED: MORPHINE 22 MG/1 ML IV (18:50)
[2016-06-21] MEDS ORDERED: NS IV (18:51)
[2016-06-21] MEDS ORDERED: KCL IV (18:51)
[2016-06-21] MEDS ORDERED: PROTONIX40 MG ORAL (18:52)
[2016-06-21] MEDS ORDERED: ZOFRAN 4 MG4 MG/2 ML IV (18:52)
[2016-06-21] MEDS ORDERED: AMBIEN5 MG ORAL (18:53)
[2016-06-21] MEDS ORDERED: CARAFATE1 G1 ORAL (18:53)
[2016-06-21] MEDS ORDERED: GRANIX300 MCG/0. SQ (18:53)
[2016-06-21] MEDS ORDERED: MIRALAX17 G2 ORAL (18:53)
[2016-06-21] MEDS ORDERED: METRONIDAZOLE500 MG ORAL (18:54)
[2016-06-21] MEDS: TBO-Filgrastim 300 mcg/0.5ml SQ NR (21:03)
[2016-06-21] MEDS: Donepezil 5mg Tab ORAL SCH (21:03)
--- NOTE | 2016-06-21 23:32 | Pulmonology Progress Note ---
Assessment/Plan Problems: (1) Symptomatic anemia (2) Episode of generalized weakness (3) Diabetes (4) Lymphoma (5) HTN (hypertension) Subjective Allergies: Coded Allergies: No Known Allergies (Unverified , 02/22/16) Objective Last 24 Hour Vital Signs Date Time Temp Pulse Resp B/P Pulse Ox O2 Delivery O2 Flow Rate FiO2 06/21/16 21:03 96 144/68 06/21/16 19:00 96.8 96 20 144/68 98 Room Air 06/21/16 16:00 97.5 83 20 128/60 100 Room Air 06/21/16 11:55 97.7 85 16 116/64 100 Room Air 06/21/16 08:40 82 135/60 06/21/16 08:40 135/60 06/21/16 07:51 97.0 82 15 135/60 100 Room Air 06/21/16 04:00 97.2 75 18 131/59 99 Room Air 06/21/16 00:00 97.0 85 18 133/60 100 Room Air Intake and Output 06/20/16 06/21/16 19:00 07:00 Intake Total 780 ml 830 ml Balance 780 ml 830 ml Intake Oral 680 ml 430 ml IV Total 100 ml 400 ml # Voids 3 4 # Bowel Movements 5 2 Laboratory Tests 06/21/16 05:45: Sodium Level 138, Potassium Level 3.5, Chloride Level 98, Carbon Dioxide Level 23, Anion Gap 17H, Blood Urea Nitrogen 7, Creatinine 0.6, Estimat Glomerular Filtration Rate , Glucose Level 102, Calcium Level 8.8 06/21/16 09:35: White Blood Count 2.5#L, Red Blood Count 2.48L, Hemoglobin 7.6L, Hematocrit 23.7L, Mean Corpuscular Volume 96, Mean Corpuscular Hemoglobin 30.8, Mean Corpuscular Hemoglobin Concent 32.2, Red Cell Distribution Width 13.5, Platelet Count 44L, Mean Platelet Volume 11.0H, Neutrophils (%) (Auto) , Lymphocytes (%) (Auto) , Monocytes (%) (Auto) , Eosinophils (%) (Auto) , Basophils (%) (Auto) , Differential Total Cells Counted 100, Neutrophils % (Manual) 62, Lymphocytes % ( Manual) 13L, Monocytes % (Manual) 13H, Eosinophils % (Manual) 1, Basophils % ( Manual) 0, Band Neutrophils 11H, Platelet Estimate DecreasedL, Platelet Morphology , Giant Platelets Rare, Hypochromasia 1+, Anisocytosis 1+ EMPERATRIZ SOLER Jun 21, 2016 23:32
[2016-06-23] MEDS ORDERED: METRONIDAZOLE500 MG ORAL (14:16)
--- NOTE | 2016-06-23 14:25 | Discharge Summary ---
Discharge Summary Hospital Course Date of Admission Jun 17, 2016 at 16:12 Date of Discharge Jun 21, 2016 at 21:50 Admitting Diagnosis WEAKNESS ANTHONY Jordan is a 86 year old female who was admitted on Jun 17, 2016 at 16: 12 for Weakness Hospital Course dc summary #[id number] Discharge Medications Continued Medications: Acetaminophen* (Acetaminophen 325MG Tablet*) 325 Mg Tablet 650 MG ORAL Q4H PRN for Fever/Headache/Mild Pain, TAB Al Hydroxide/mg Hydroxide (Mag-Al Plus Suspension) 30 Ml Oral.susp 30 ML ORAL Q6HR PRN for Abdominal cramps, ML Atenolol* (Tenormin*) 25 Mg Tablet 25 MG ORAL Q12HR, TAB Donepezil Hcl* (Aricept*) 5 Mg Tablet 5 MG ORAL QHS, TAB Glipizide* (Glipizide*) 5 Mg Tablet 2.5 MG ORAL BIDAC, TAB Hydrocodone Bit/Acetaminophen 5-325* ([place] 5-325 Tablet*) 1 Each Tablet 1 TAB ORAL Q6HR PRN for For Pain, TAB Insulin Aspart* (Novolog*) 100 Unit/1 Ml Insuln.pen 0 SUBQ AC+HS, #1 EA 0 Refills Irbesartan* (Avapro*) 75 Mg Tablet 75 MG ORAL DAILY, TAB Lorazepam* (Lorazepam*) 2 Mg/1 Ml Vial 0.5 MG IV Q4H PRN for For Anxiety, VIAL Metronidazole* (Flagyl*) 500 Mg Tablet 500 MG ORAL EVERY 8 HOURS, #30 TAB (This prescription has been renewed) Morphine Sulfate* (Morphine Sulfate*) 2 Mg/1 Ml Cartridge 1 MG IV Q4HR PRN for Pain Scale (6-10), EA Ondansetron* (Zofran*) 4 Mg/2 Ml Vial 4 MG IV Q6H PRN for Nausea & Vomiting, VIAL Pantoprazole* (Protonix*) 40 Mg Tablet.dr 40 MG ORAL DAILY, TAB Polyethylene Glycol 3350* (Miralax*) 17 Gm Powd.pack 17 GM ORAL HS PRN for Constipation, PACKET Simvastatin (Zocor) 5 Mg Tablet 5 MG ORAL BEDTIME, TAB Sucralfate* (Carafate*) 1 Gm Tablet 1 GM ORAL TID, TAB Tbo-Filgrastim (Granix) 300 Mcg/0.5 Ml Syringe 300 MCG SQ Zolpidem Tartrate* (Ambien*) 5 Mg Tablet 5 MG ORAL BEDTIME PRN for Insomnia, TAB [NS w/ KCl 20 mEq] () 50 ML IV Q1HR Discontinued Medications: Amlodipine Besylate (Norvasc) 2.5 Mg Tablet 2.5 MG ORAL DAILY, TAB Pantoprazole* (Pantoprazole*) 40 Mg Tablet.dr 40 MG ORAL DAILY, TAB Pravastatin Sod* (Pravastatin Sod*) 20 Mg Tablet 20 MG ORAL BEDTIME, TAB Propranolol Hcl* (Inderal*) 10 Mg Tablet 10 MG ORAL DA, #90 TAB 0 Refills Discharge Condition Upon Discharge: stable Discharge Disposition Patient was discharged to [facility] under dr Germain Discharge Diagnoses: Discharge Instructions Discharge Instructions Special Instructions I have been assigned to complete a D/C Summary on this account. I was not involved in the patient management Sahara Franklin NP (Vanchtein) Jun 23, 2016 14:25
--- NOTE | 2016-06-24 02:07 | Discharge Summary 2 SIG ---
DATE OF ADMISSION: 06/17/2016 DATE OF DISCHARGE: 06/21/2016 REASON FOR ADMISSION: 86-year-old female was sent from her oncologist's office for weakness, dizziness, and nausea. The patient currently on chemotherapy for lymphoma. She denied headaches, fevers, or chills. She denied chest pain, shortness of breath, abdominal pain, or urinary complaints such as dysuria, burning upon urination or flank pain. The patient has a history of hypertension, diabetes, lymphoma, and history of CVA as well as the mitral valve problem. Workup in the emergency room revealed negative troponin. Chest x-ray revealed cardiomegaly, but no evidence of infiltrate or consolidation. Hemoglobin was 8, hematocrit-25 and platelets - 56,000. ProBNP was - 1100. EKG showed normal sinus rhythm with some premature ventricular contractions and heart rate was 75. CT of the head revealed evidence of old CVA, but no acute intracranial pathology. Venous duplex bilateral lower extremities was negative for acute DVT. Urinalysis was negative for evidence of UTI. The patient was admitted for further management. ADMITTING DIAGNOSES: 1. Episode of generalized weakness. 2. Symptomatic anemia. 3. Lymphoma, on chemotherapy. 4. Hypertension. 5. Diabetes. 6. Possible sepsis. HOSPITAL STAY: The patient was admitted. ID consult was requested. Supplemental oxygen and pulmonary toilet provided as needed. Echocardiogram revealed preserved ejection fraction of 60% to 65% and right ventricular systolic pressure of 46 consistent with moderate pulmonary hypertension as well as the evidence of severe mitral regurgitation and moderate tricuspid regurgitation. Carotid duplex was essentially negative. Blood sugar was managed with sliding scale of insulin. Blood pressure was managed with current management and was stable. DVT prophylaxis and GI prophylaxis provided. Peripheral blood smear review revealed leukopenia, but no evidence of blasts; moderate anemia, normocytic normochromic, no specific morphological changes seen; and thrombocytopenia, no platelet aggregation seen. On 06/19/2016, white blood count was 0.5, hemoglobin - 7.8, with platelets of 44,000. Blood cultures were negative. S tool for C. difficile revealed positive result. The patient was started on the Flagyl . ID followed. Leukopenia improved. White blood count up to 2.5 on 06/21/2016. The patient remained anemic and thrombocytopenic. Platelets slightly up to 44,0000. Hemoglobin-7.6 and hematocrit 23.7. Pancytopenia likely due to chemotherapy. The patient was on the neutropenic precautions. Oncology consult was requested. The patient declined blood transfusion for now. Blood pressure was managed with the ARB and beta-eric, and was stable. The patient was transferred to [facility] under care of her oncologist dr Germain for further amnageemtn. DISCHARGE DIAGNOSES: 1. Possible sepsis. 2. Symptomatic anemia. 3. Lymphoma, on chemotherapy. 4. Pancytopenia, likely secondary to underlying lymphoma. 5. Hypertension. 6. Diabetes. 7. Clostridium difficile colitis. 8. Aortic stenosis. 9. Moderate pulmonary hypertension. 10. Severe mitral regurgitation. 11. Moderate tricuspid regurgitation. DISCHARGE MEDICATIONS: See medication reconciliation list . DISCHARGE INSTRUCTIONS: The patient was transferred to [facility] under care of oncologist dr Germain. FOLLOWUP: Follow up with medical doctor at the facility. Donald Sánchez M.D. I have been assigned to dictate discharge summary on this account and I was not involved in the patient's management. Sahara Franklin (Vanchtein) N.PGrant DR: RACIEL JOB#: [id number] CC: PAULA
== END 2016-06-21 21:50 | disposition short-term general hospital (02) | DRG 872 ==
LOC: EDBD 14:15 → EMR 16:10 → 4E 16:12 → EDBEDREQ 17:54 → 4E 06-18 12:00
DX: A41.9 Sepsis, unspecified organism (principal); D61.818 Other pancytopenia; A04.7 Enterocolitis due to Clostridium difficile; C85.90 Non-Hodgkin lymphoma, unspecified, unspecified site; D63.0 Anemia in neoplastic disease; I10 Essential (primary) hypertension; E11.9 Type 2 diabetes mellitus without complications; I27.2 Other secondary pulmonary hypertension; I08.3 Combined rheumatic disorders of mitral, aortic and tricuspid valves; E78.00 Pure hypercholesterolemia, unspecified; Z79.899 Other long term (current) drug therapy
CPT/HCPCS: 36415; 70450; 71010; 80048; 80053; 81003; 82270; 82378; 82550; 82553; 82607; 82746; 82962; 83540; 83550; 83615; 83735; 83880; 84100; 84443; 84484; 85007; 85025; 85044; 85060; 85610; 85651; 85730; 86850; 86900; 86901; 86920; 87040; 87324; 93005; 93306; 93880; 93970; J1815; J2405